=== PATIENT | male | born 1945 | race American Indian/Alaskan Native ===

== ENCOUNTER 2017-11-10 14:36 | Inpatient (IN) | payer MEDICARE ==
[2017-11-10] MEDS ORDERED: NACL 0.9% 500 ML 500 ML IV ONE (15:36)
--- NOTE | 2017-11-10 16:25 | XRay Report ---
FINAL REPORT PROCEDURE: XR CHEST 1V AP TECHNIQUE: Chest radiograph anteroposterior view. CPT 05222 HISTORY: possible Sepsis COMPARISON: None FINDINGS: The trachea is midline. The heart is normal in size. The lungs are clear. There is no evident pneumothorax or pleural fluid the thoracic cage is intact. IMPRESSION: No radiographically evident acute cardiopulmonary disease.
[2017-11-10 16:32] LABS: Basophils % (Auto) 0.1 % (0.0-1.8); Eosinophils % (Auto) 0.2 % (0.0-4.3); Hematocrit 35.3 % (35.5-45.6); Hemoglobin 11.5 gm/dl (11.8-15.2); Mean Corpuscular HGB Conc 33 % (32-34); Mean Corpuscular Hemoglobin 29 pg (28-32); Mean Corpuscular Volume 89 fl (84-94); Platelet Count 203 K/mm3 (140-440); Red Blood Count 3.98 M/mm3 (3.65-5.03); Red Cell Distribution Width 15.3 % (13.2-15.2); White Blood Count 10.3 K/mm3 (4.5-11.0)
[2017-11-10 16:43] LABS: INR 1.04 (0.87-1.13)
[2017-11-10 16:58] LABS: Albumin/Globulin Ratio 1.3 %; Bilirubin,Total 0.5 mg/dL (0.1-1.2); Calcium 9.1 mg/dL (8.4-10.2); Chloride 99.8 mmol/L (98-107); Potassium 4.5 mmol/L (3.6-5.0); Total Protein 7.1 g/dL (6.3-8.2)
--- NOTE | 2017-11-10 18:39 | Emergency Department Report ---
- General Chief complaint: Fall Stated complaint: LBP Time Seen by Provider: 11/10/17 18:23 Source: patient, EMS Mode of arrival: Stretcher Limitations: Physical Limitation - History of Present Illness Initial comments: 72 YO MALE SCHIZOPHRENIC HER BECAUSE OF MULTIPLE FALLS THIS WEEK AND HYPOTENSION. EMS CALLED FOR FALL AND FOUND SYSTOLIC BLOOD PRESSURE TO BE 80 FOR WHICH THEY GAVE ALMOST A LITER OF FLUID. HE HIT HIS HAND YESTERDAY AND DISLOCATED HIS RIGHT HAND SECOND DIGIT WHICH EMS REDUCED. HIS OTHER COMPLAINTS TODAY ARE INFECTIONS IN BILATERAL FEET. PT WAS ALTERED WHEN EMS MADE THEIR ENCOUNTER BUT WAS NOT ALTERED HERE BUT HAD URINATED ON HIMSELF. HE HAS HAD MULTIPLE FALLS FOR WHICH HE BLAMES HI SFEET FOR GETTING CAUGHT IN HIS OTHER FOOT AND FOOT PAIN/INFECTION MD Complaint: generalized weakness -: Sudden Severity scale (0 -10): 0 - Related Data Home Medications Medication Instructions Recorded Confirmed Last Taken Benztropine [Cogentin] 1 mg PO DAILY 11/10/17 11/10/17 Unknown Cariprazine HCl [Vraylar] 4.5 mg PO QHS 11/10/17 11/10/17 Unknown Finasteride [Proscar] 5 mg PO DAILY 11/10/17 11/10/17 Unknown Haloperidol 10 mg PO BID 11/10/17 11/10/17 Unknown Losartan/Hydrochlorothiazide 1 each PO DAILY 11/10/17 11/10/17 Unknown [Losartan-Hctz 100-25 mg Tab] Simvastatin 20 mg PO QHS 11/10/17 11/10/17 Unknown Terazosin [Hytrin] 5 mg PO QHS 11/10/17 11/10/17 Unknown Allergies Allergy/AdvReac Type Severity Reaction Status Date / Time No Known Allergies Allergy Verified 11/10/17 15:28 ED Review of Systems ROS: Stated complaint: LBP Other details as noted in HPI Constitutional: denies: chills, fever Eyes: denies: eye pain, eye discharge, vision change ENT: denies: ear pain, throat pain Respiratory: denies: cough, shortness of breath, wheezing Cardiovascular: denies: chest pain, palpitations Endocrine: no symptoms reported Gastrointestinal: denies: abdominal pain, nausea, diarrhea Genitourinary: denies: urgency, dysuria Musculoskeletal: joint swelling, arthralgia (FEOOT PAIN AND INFECTION), other ( FEET GETTING CAUGHT IN HIS OTHER FOOT). denies: back pain Skin: denies: rash, lesions Neurological: denies: headache, weakness, paresthesias Psychiatric: denies: anxiety, depression Hematological/Lymphatic: denies: easy bleeding, easy bruising ED Past Medical Hx - Past Medical History Previous Medical History?: Yes Hx Hypertension: Yes Hx Diabetes: Yes Hx Psychiatric Treatment: Yes (Schizophrenia) - Surgical History Past Surgical History?: Yes Additional Surgical History: RUPTURED APPENDIX,CIRCUMCISION - Social History Smoking Status: Current Every Day Smoker Substance Use Type: None - Medications Home Medications: Home Medications Medication Instructions Recorded Confirmed Last Taken Type Benztropine [Cogentin] 1 mg PO DAILY 11/10/17 11/10/17 Unknown History Cariprazine HCl [Vraylar] 4.5 mg PO QHS 11/10/17 11/10/17 Unknown History Finasteride [Proscar] 5 mg PO DAILY 11/10/17 11/10/17 Unknown History Haloperidol 10 mg PO BID 11/10/17 11/10/17 Unknown History Losartan/Hydrochlorothiazide 1 each PO DAILY 11/10/17 11/10/17 Unknown History [Losartan-Hctz 100-25 mg Tab] Simvastatin 20 mg PO QHS 11/10/17 11/10/17 Unknown History Terazosin [Hytrin] 5 mg PO QHS 11/10/17 11/10/17 Unknown History ED Physical Exam - General Limitations: Physical Limitation General appearance: alert, in no apparent distress - Head Head exam: Present: atraumatic, normocephalic - Eye Eye exam: Present: normal appearance, EOMI Pupils: Present: normal accommodation - ENT ENT exam: Present: mucous membranes dry - Neck Neck exam: Present: normal inspection, full ROM - Respiratory Respiratory exam: Present: normal lung sounds bilaterally. Absent: respiratory distress, wheezes, rales, accessory muscle use - Cardiovascular Cardiovascular Exam: Present: systolic murmur (1/) - GI/Abdominal GI/Abdominal exam: Present: soft, other (MIDLINE OLD SURGICALSCAR). Absent: distended, tenderness - Rectal Rectal exam: Present: deferred - exam: Present: normal inspection, circumcision External exam: Present: normal external exam - Extremities Exam Extremities exam: Present: full ROM, tenderness (BETWEEN TOES ON RIGHT GREATER THAN LEFT, INFECTED ULCERATIONS,) - Back Exam Back exam: Present: normal inspection, full ROM - Neurological Exam Neurological exam: Present: alert, oriented X3, CN II-XII intact - Psychiatric Psychiatric exam: Present: normal affect, normal mood - Skin Skin exam: Present: warm, dry, normal color ED Course Vital Signs 11/10/17 11/10/17 11/10/17 15:24 15:28 15:30 Temperature 98.2 F Pulse Rate 93 H 97 H 99 H Respiratory 16 15 14 Rate Blood Pressure 133/66 133/66 Blood Pressure [Left] O2 Sat by Pulse 98 98 Oximetry 11/10/17 11/10/17 11/10/17 15:46 16:00 16:15 Temperature Pulse Rate 89 90 71 Respiratory 14 14 13 Rate Blood Pressure 139/70 139/70 122/73 Blood Pressure [Left] O2 Sat by Pulse 97 98 98 Oximetry 11/10/17 11/10/17 11/10/17 16:30 16:45 17:01 Temperature Pulse Rate 85 Respiratory 11 L Rate Blood Pressure 127/68 134/73 114/69 Blood Pressure [Left] O2 Sat by Pulse 97 Oximetry 11/10/17 11/10/17 11/10/17 17:15 17:31 17:44 Temperature Pulse Rate Respiratory 11 L Rate Blood Pressure 106/62 108/65 Blood Pressure [Left] O2 Sat by Pulse 97 Oximetry 11/10/17 11/10/17 11/10/17 17:47 18:02 18:15 Temperature Pulse Rate 83 Respiratory 14 Rate Blood Pressure 178/148 120/67 112/71 Blood Pressure [Left] O2 Sat by Pulse 96 Oximetry 11/10/17 11/10/17 11/10/17 18:30 18:54 19:00 Temperature Pulse Rate 83 65 66 Respiratory 11 L 12 12 Rate Blood Pressure 116/78 178/148 106/64 Blood Pressure [Left] O2 Sat by Pulse 97 98 96 Oximetry 11/10/17 20:00 Temperature 98.2 F Pulse Rate 81 Respiratory 20 Rate Blood Pressure Blood Pressure 111/79 [Left] O2 Sat by Pulse 98 Oximetry - Reevaluation(s) Reevaluation #1: 11/11/17 03:30 PT PEED IN THE BED AND TOOK OFF ALL HIS CLOTHES. STILL AWAITING THE V/Q SCAN, DR HANSEN IS AWARE OF THE SCAN BEING ORDERED. ED Medical Decision Making - Lab Data Result diagrams: 11/10/17 16:11 11/10/17 16:11 - EKG Data -: EKG Interpreted by Me EKG shows normal: sinus rhythm, axis, intervals, QRS complexes, ST-T waves Rate: normal - Radiology Data Radiology results: report reviewed (CXR;NEGATIVE FOR ACUTE) Critical care attestation.: If time is entered above; I have spent that time in minutes in the direct care of this critically ill patient, excluding procedure time. ED Disposition Clinical Impression: Foot infection Hypotension Qualifiers: Hypotension type: unspecified hypotension type Qualified Code(s): I95.9 - Hypotension, unspecified Anemia Qualifiers: Anemia type: unspecified type Qualified Code(s): D64.9 - Anemia, unspecified Renal failure, acute Qualifiers: Acute renal failure type: unspecified Qualified Code(s): N17.9 - Acute kidney failure, unspecified Altered mental state Qualifiers: Altered mental status type: unspecified Qualified Code(s): R41.82 - Altered mental status, unspecified Fracture of finger of right hand Qualifiers: Encounter type: initial encounter Finger: index finger Fracture type: closed Phalanx: proximal Fracture alignment: displaced Qualified Code(s): S62.610A - Displaced fracture of proximal phalanx of right index finger, initial encounter for closed fracture Disposition: DC-09 OP ADMIT IP TO THIS HOSP Is pt being admited?: Yes Condition: Stable Referrals: PRIMARY CARE,MD [Primary Care Provider] - 3-5 Days Time of Disposition: 01:44 (CASE REVIEWED WITH DR JADE ABDI ADMIT HIM TO THE HOSPITAL)
--- NOTE | 2017-11-10 18:52 | XRay Report ---
FINAL REPORT PROCEDURE: XR FINGER(S) 2+V RT TECHNIQUE: Three views of the right 2nd finger are obtained HISTORY: Right digit deformity COMPARISON: No prior studies are available for comparison. FINDINGS: Bones are osteopenic. There is a small bony density adjacent to the palmar aspect of the PIP joint of the 2nd finger. This may be a small avulsed fracture fragment. No dislocation is seen. Soft tissue swelling is seen this region. IMPRESSION: Likely small avulsion fracture is seen associated with the base of the middle phalanx of the right 2nd finger.
[2017-11-10 19:28] LABS: Creatine Kinase MB 152.8 ng/mL (0.0-4.0)
[2017-11-10 20:45] LABS: Bilirubin,Urine NEG (Negative); Blood,Urine LG (Negative); Ketones,Urine NEG (Negative); Leukocyte Esterase,Urine NEG (Negative); Mucus,Urine FEW /HPF; Nitrite,Urine NEG (Negative); Protein,Urine <15 mg/dL mg/dL (Negative); Urobilinogen,Urine < 2.0 mg/dL (<2.0)
[2017-11-11] MEDS ORDERED: TYLENOL PO PRN (01:20)
[2017-11-11] MEDS ORDERED: MORPHINE IV PRN (01:21)
[2017-11-11] MEDS ORDERED: ZOFRAN IV PRN (01:23)
[2017-11-11] MEDS ORDERED: HALDOL PO ONE (03:33)
--- NOTE | 2017-11-11 04:23 | Nuclear Medicine Report ---
FINAL REPORT PROCEDURE: NM LUNG SCAN PERF/VENT TECHNIQUE: 5 mCi Tc-99m MAA was injected IV for pulmonary perfusion imaging in multiple projections. 15 mCi XE-133 aerosol was inhaled for pulmonary ventilation imaging in multiple projections. Injection site: RIGHT antecubital fossa. CPT 93337 REGULATORY GUIDELINES: The patient was released based upon established guidelines. HISTORY: Altered mental status. Elevated D-dimer. COMPARISON: Chest radiograph dated 09/2017. FINDINGS: Perfusion: Small heterogeneous nonsegmental defects. Ventilation: No defects . IMPRESSION: Findings felt to most likely reflect low probability V/Q scan for pulmonary embolism. Recommend CTA of the chest pulmonary embolism protocol for further characterization if patient has no contraindication to intravenous contrast if there is continued clinical concern.
--- NOTE | 2017-11-11 04:53 | History and Physical Report ---
CHIEF COMPLAINT: Frequent falls. Other complaints include finding of low blood pressure. HISTORY OF PRESENT ILLNESS: The patient is a 72-year-old male who has been falling around frequently and was brought to the Emergency Room because of that and was found to have low blood pressure. The patient was noted to be on multiple blood pressure medications also. After evaluation in the Emergency Room, the patient was found to have elevated troponin level and also has complained of pain in the right foot and right second finger. There is no history of chest pain, no history of shortness of breath. No history of fever or chills, nausea or vomiting. PAST MEDICAL HISTORY: Pertinent for hypertension, diabetes mellitus, schizophrenia. PAST SURGICAL HISTORY: Unremarkable. FAMILY HISTORY: Noncontributory. SOCIAL HISTORY: The patient smokes cigarettes. Does not drink alcohol, does not use illicit drugs. MEDICATIONS: The patient is on Cogentin 1 mg by mouth daily, cariprazine 4.5 mg at bedtime, Proscar 5 mg by mouth daily, haloperidol 10 mg by mouth twice daily, losartan/HCTZ 100/25 mg one by mouth daily, simvastatin 20 mg at bedtime, terazosin 5 mg at bedtime. ALLERGIES: There are no known drug allergies. REVIEW OF SYSTEMS: CONSTITUTIONAL: There is no fever, no chills, no diaphoresis. HEENT: There is no headache or sore throat. CARDIOVASCULAR: No chest pain or orthopnea. RESPIRATORY: There is no shortness of breath or cough. GASTROINTESTINAL: There is no nausea, no vomiting, no abdominal pain, diarrhea or constipation. NEUROLOGICAL: Frequent falls noted, no change in mental status. No numbness or dizziness. MUSCULOSKELETAL: Pain in the right second finger noted and pain in the right foot also noted. DERMATOLOGICAL: There is no skin rash or itching. GENITOURINARY: There is no dysuria, hematuria or flank pain. Rest of system review is normal. PHYSICAL EXAMINATION: GENERAL: At the time of exam, the patient was found to be alert, oriented to person and place, not in acute distress. VITAL SIGNS: Shows temperature of 98.2 degrees Fahrenheit, pulse of 81, respirations 20, blood pressure is 111/79, O2 sat of 98% on room air. HEENT: Show pupils to be equal, round, reactive to light and accommodation. Extraocular muscles are intact. NECK: Supple, with no JVD or carotid bruit. CARDIOVASCULAR: Show first and second heart sounds with no gallops. RESPIRATORY: Show good air entry on both sides of the lung with no abnormal breath sounds. GASTROINTESTINAL: Show abdomen to be full, soft, nontender with no organomegaly or rigidity. NEUROLOGICAL: Shows no focal deficit. MUSCULOSKELETAL: Show tenderness in the right second finger area. DERMATOLOGICAL: Showed very long toenails that are not properly kept, with hyperpigmented skin on the sheath and area of redness in the right foot. GENITOURINARY: Show no costovertebral angle tenderness. PERTINENT LABORATORY DATA AND IMAGING STUDIES: The patient has CBC done that shows normal white count, low hemoglobin of 11.5, low hematocrit of 35.3, with normal platelets with CBC differential showing elevated monocyte count of 12.1 and elevated segmented neutrophil of 78.8. Coagulation studies were unremarkable. D-dimer was elevated with a value of 978.56. The patient's chemistry shows elevated BUN of 61 and elevated creatinine of 2.5. The patient's liver transaminases show a high AST of 173 and high ALT of 61. Cardiac enzymes show very high total CK of 8693 with elevated CK-MB of 152.8, and normal CK-MB percentage index of 1.7 and elevated troponin level of 0.085. The patient's urinalysis was unremarkable. IMAGING STUDIES: The patient had chest x-ray done that shows no radiographic evidence of active cardiopulmonary disease. The patient's x-ray of the fingers shows likely small avulsion fracture, seen associated with the base of the middle phalanx of the right second finger. DIAGNOSES: 1. Elevated troponin level. 2. Frequent falls. 3. Right second finger avulsion fracture. 4. Right foot cellulitis. PLAN: The patient will be admitted to medical floor on telemetry. We will have cardiac enzymes checked q. 6 hours x 2 involving troponin, total CK and CK-MB. The patient will have Orthopedic Surgical consult with Dr. Morales because of avulsion fracture involving the right second finger bone. The patient will be on IV ceftriaxone 1 gram daily because of cellulitis of the right foot. DVT prophylaxis will be through heparin 5000 units subQ q. 12 hours. The patient will be on IV morphine 2 mg every 3 hours as needed for pain and will be on IV normal saline and 75 mL an hour as well as IV Zofran 4 mg every 8 hours for nausea and vomiting. The patient will have basic metabolic panel checked in the morning to monitor the acute renal failure and the patient is on Tylenol 650 mg by mouth every 4 hours for fever and headache and will be on his own medication as shown in the medication reconciliation section. JOB# [id number] OCN/NTS
[2017-11-11 05:38] LABS: Urine Drugs of Abuse Note Disclamer
[2017-11-11 08:00] LABS: Creatine Kinase MB 94.1 ng/mL (0.0-4.0)
[2017-11-11 08:06] LABS: Chloride 101.7 mmol/L (98-107); Potassium 4.6 mmol/L (3.6-5.0)
[2017-11-11] MEDS ORDERED: NON-FORMULARY (Haloperidol [Haloperidol] 10 MG) PO SCH (10:00)
[2017-11-11] MEDS ORDERED: NON-FORMULARY (Losartan/Hydrochlorothiazide [Losartan-Hctz 100-25 Mg Tab] 1 EACH) PO SCH (10:00)
[2017-11-11] MEDS ORDERED: ROCEPHIN/NS 1 GM/50 ML 1 GM/50 ML BAG IV SCH (10:00)
[2017-11-11] MEDS: COGENTIN PO SCH ×2 (10:30→22:33)
[2017-11-11] MEDS: MINIPRESS PO SCH ×2 (10:30→22:36)
[2017-11-11] MEDS: HALDOL PO SCH ×2 (10:30→22:37)
[2017-11-11] MEDS: PROSCAR PO SCH (10:30)
[2017-11-11] MEDS: HEPARIN SUB-Q SCH ×2 (10:32→22:38)
[2017-11-11] MEDS: COZAAR PO SCH (11:00)
--- NOTE | 2017-11-11 11:12 | Event Note ---
Date: 11/11/17 Patient seen and examined. Medical records reviewed Admitted this morning with nondisplaced fracture of the phalanx of the right index finger secondary to fall Rhabdomyolysis, elevated d-dimer is, VQ scan low probability for PE, Continue current management Plan of care discussed with the patient.
[2017-11-11 14:39] LABS: Creatine Kinase MB 73.7 ng/mL (0.0-4.0)
[2017-11-11] MEDS: HCTZ PO SCH (18:54)
[2017-11-11] MEDS: NACL 0.9% 1000 ML 1,000 ML IV SCH (20:26)
[2017-11-11] MEDS ORDERED: CARIPRAZINE HCL 4.5 MG PO SCH (22:00)
[2017-11-11] MEDS ORDERED: NON-FORMULARY (Terazosin 5 MG) PO SCH (22:00)
[2017-11-11] MEDS ORDERED: PRAVACHOL PO SCH (22:00)
[2017-11-11] MEDS ORDERED: NON-FORMULARY (Simvastatin [Simvastatin] 20 MG) PO SCH (22:00)
[2017-11-12] MEDS: NACL 0.9% 1000 ML 1,000 ML IV SCH ×2 (06:27→17:16)
[2017-11-12 07:28] LABS: Calcium 8.9 mg/dL (8.4-10.2); Chloride 101.3 mmol/L (98-107); Potassium 4.3 mmol/L (3.6-5.0)
[2017-11-12] MEDS: COGENTIN PO SCH (09:52)
[2017-11-12] MEDS: HCTZ PO SCH (09:52)
[2017-11-12] MEDS: HEPARIN SUB-Q SCH (09:52)
[2017-11-12] MEDS: HALDOL PO SCH (09:52)
[2017-11-12] MEDS: PROSCAR PO SCH (09:52)
[2017-11-12] MEDS: cefTRIAXone 1 GM in NACL 0.9% 20 ML IV SCH ×2 (10:18→10:19)
[2017-11-12] MEDS: COZAAR PO SCH (14:10)
[2017-11-12] MEDS: MINIPRESS PO SCH (14:11)
--- NOTE | 2017-11-12 16:20 | Consultation ---
History of Present Illness - HPI Consult date: 11/12/17 Consult reason: fracture History of present illness: 72-year-old male with a history of repeated falls complained of some pain and swelling at the right index finger X-rays were done and orthopedic consult requested Medications and Allergies Allergies Allergy/AdvReac Type Severity Reaction Status Date / Time No Known Allergies Allergy Verified 11/10/17 15:28 Home Medications Medication Instructions Recorded Confirmed Last Taken Type Benztropine [Cogentin] 1 mg PO DAILY 11/10/17 11/10/17 Unknown History Cariprazine HCl [Vraylar] 4.5 mg PO QHS 11/10/17 11/10/17 Unknown History Finasteride [Proscar] 5 mg PO DAILY 11/10/17 11/10/17 Unknown History Haloperidol 10 mg PO BID 11/10/17 11/10/17 Unknown History Losartan/Hydrochlorothiazide 1 each PO DAILY 11/10/17 11/10/17 Unknown History [Losartan-Hctz 100-25 mg Tab] Simvastatin 20 mg PO QHS 11/10/17 11/10/17 Unknown History Terazosin [Hytrin] 5 mg PO QHS 11/10/17 11/10/17 Unknown History Active Meds: Active Medications Acetaminophen (Tylenol) 650 mg PO Q4H PRN PRN Reason: For Pain/Fever/Headache Benztropine Mesylate (Cogentin) 1 mg PO DAILY [facility] Last Admin: 11/12/17 09:52 Dose: 1 mg Finasteride (Proscar) 5 mg PO DAILY [facility] Last Admin: 11/12/17 09:52 Dose: 5 mg Haloperidol (Haldol) 10 mg PO BID [facility] Last Admin: 11/12/17 09:52 Dose: 10 mg Heparin Sodium (Porcine) (Heparin) 5,000 unit SUB-Q Q12HR [facility] Last Admin: 11/12/17 09:52 Dose: 5,000 unit Hydrochlorothiazide (Hctz) 25 mg PO DAILY [facility] Last Admin: 11/12/17 09:52 Dose: 25 mg Sodium Chloride (Nacl 0.9% 1000 Ml) 1,000 mls @ 75 mls/hr IV DIRECT [facility] Last Admin: 11/12/17 06:27 Dose: 75 mls/hr Ceftriaxone Sodium 1 gm/ (Sodium Chloride) 20 mls @ 20 mls/10 min IV Q24HR [facility] Last Admin: 11/12/17 10:19 Dose: 20 mls/10 min Losartan Potassium (Cozaar) 100 mg PO DAILY [facility] Last Admin: 11/12/17 14:10 Dose: Not Given Miscellaneous Medication (Cariprazine Hcl [Vraylar]) 4.5 mg PO QHS [facility] Morphine Sulfate (Morphine) 2 mg IV Q3H PRN PRN Reason: Pain, Moderate (4-6) Ondansetron HCl (Zofran) 4 mg IV Q8H PRN PRN Reason: Nausea And Vomiting Prazosin HCl (Minipress) 2 mg PO Q12HR [facility] Last Admin: 11/12/17 14:11 Dose: Not Given Physical Examination - Physical exam Narrative exam: right hand - mild to moderate swelling at 2nd finger PIP joint, good active ROM , no gross deformity plain xrays reviewed by me and show avulsion fx middle phalanx joint alignment ok Assessment and Plan right 2nd finger sprain at PIP joint recommend maryjane taping only followed by active RoM exercises....
--- NOTE | 2017-11-12 16:55 | Progress Note ---
Assessment and Plan Assessment and plan: --Avulsion fracture of right second finger PIP, evaluated by orthopedic, recommend, Andrei taping, and active range of movements and exercise as tolerated --Rhabdomyolysis; secondary to recurrent falls CK levels trending down, continue IV hydration and closely monitor his renal function --Acute renal failure secondary to ATN due to rhabdomyolysis Significant improvement in renal function, closely monitor, continue IV hydration --History of recurrent falls; unknown etiology. Will check CT head without contrast , physical therapy and occupational therapy rehabilitation if needed Patient needs evaluation by neurologist inpatient versus outpatient --Elevated troponin; patient denies any chest pain, probably secondary to rhabdo , Closely monitor --Possible urinary tract infection; continue empiric antibiotics, follow cultures --DVT prophylaxis with heparin Physical therapy occupational therapy DC planning. Case management possible home health versus rehabilitation if needed Plan of care discussed with the patient and his nurse Possible discharge in 1-2 days if stable History Interval history: Patient seen and examined medical records reviewed Admitted with recurrent falls and generalized weakness Rhabdomyolysis, acute renal failure Face slightly better now, CK levels trending down Alert awake responding to simple questions appropriately Orthopedic evaluation and recommendations noted and appreciated Hospitalist Physical - Constitutional Vitals: Temp Pulse Resp BP Pulse Ox 97.5 F L 86 19 103/66 92 11/12/17 15:27 11/12/17 15:27 11/12/17 15:27 11/12/17 15:27 11/12/17 15:27 General appearance: Present: no acute distress, well-nourished - EENT Eyes: Present: PERRL, EOM intact - Neck Neck: Present: supple, enlarged thyroid - Respiratory Respiratory effort: normal Respiratory: bilateral: diminished, rales, rhonchi - Cardiovascular Rhythm: regular Heart Sounds: Present: S1 & S2 - Extremities Extremities: no ischemia, No edema Peripheral Pulses: within normal limits - Abdominal General gastrointestinal: soft, non-tender - Integumentary Integumentary: Present: clear, warm - Psychiatric Psychiatric: appropriate mood/affect, other (confused at times) - Neurologic Neurologic: moves all extremities Results - Labs CBC & Chem 7: 11/10/17 16:11 11/12/17 06:24 Labs: Laboratory Last Values WBC 10.3 K/mm3 (4.5-11.0) 11/10/17 16:11 RBC 3.98 M/mm3 (3.65-5.03) 11/10/17 16:11 Hgb 11.5 gm/dl (11.8-15.2) L 11/10/17 16:11 Hct 35.3 % (35.5-45.6) L 11/10/17 16:11 MCV 89 fl (84-94) 11/10/17 16:11 MCH 29 pg (28-32) 11/10/17 16:11 MCHC 33 % (32-34) 11/10/17 16:11 RDW 15.3 % (13.2-15.2) H 11/10/17 16:11 Plt Count 203 K/mm3 (140-440) 11/10/17 16:11 Lymph % (Auto) 8.8 % (13.4-35.0) L 11/10/17 16:11 [place] % (Auto) 12.1 % (0.0-7.3) H 11/10/17 16:11 Eos % (Auto) 0.2 % (0.0-4.3) 11/10/17 16:11 Baso % (Auto) 0.1 % (0.0-1.8) 11/10/17 16:11 Lymph # 0.9 K/mm3 (1.2-5.4) L 11/10/17 16:11 [place] # 1.2 K/mm3 (0.0-0.8) H 11/10/17 16:11 Eos # 0.0 K/mm3 (0.0-0.4) 11/10/17 16:11 Baso # 0.0 K/mm3 (0.0-0.1) 11/10/17 16:11 Seg Neutrophils % 78.8 % (40.0-70.0) H 11/10/17 16:11 Seg Neutrophils # 8.1 K/mm3 (1.8-7.7) H 11/10/17 16:11 PT 14.1 Sec. (12.2-14.9) 11/10/17 16:11 INR 1.04 (0.87-1.13) 11/10/17 16:11 D-Dimer 978.56 ng/mlDDU (0-234) H 11/10/17 18:44 VBG pH 7.340 (7.320-7.420) 11/10/17 16:11 Sodium 140 mmol/L (137-145) 11/12/17 06:24 Potassium 4.3 mmol/L (3.6-5.0) 11/12/17 06:24 Chloride 101.3 mmol/L (98-107) 11/12/17 06:24 Carbon Dioxide 23 mmol/L (22-30) 11/12/17 06:24 Anion Gap 20 mmol/L 11/12/17 06:24 BUN 42 mg/dL (9-20) H 11/12/17 06:24 Creatinine 1.5 mg/dL (0.8-1.5) 11/12/17 06:24 Estimated GFR 56 ml/min 11/12/17 06:24 BUN/Creatinine Ratio 28 % 11/12/17 06:24 Glucose 102 mg/dL (75-100) H 11/12/17 06:24 Lactic Acid 0.80 mmol/L (0.7-2.0) 11/10/17 18:44 Calcium 8.9 mg/dL (8.4-10.2) 11/12/17 06:24 Total Bilirubin 0.50 mg/dL (0.1-1.2) 11/10/17 16:11 AST 173 units/L (5-40) H 11/10/17 16:11 ALT 61 units/L (7-56) H 11/10/17 16:11 Alkaline Phosphatase 83 units/L (35-129) 11/10/17 16:11 Total Creatine Kinase 3671 units/L (55-170) H 11/12/17 06:24 CK-MB (CK-2) 28.0 ng/mL (0.0-4.0) H 11/12/17 06:24 CK-MB (CK-2) Rel Index 0.7 (0-4) 11/12/17 06:24 Troponin T 0.061 ng/mL (0.00-0.029) H 11/12/17 06:24 NT-Pro-B Natriuret Pep 369.1 pg/mL (0-900) 11/11/17 02:19 Total Protein 7.1 g/dL (6.3-8.2) 11/10/17 16:11 Albumin 4.0 g/dL (3.9-5) 11/10/17 16:11 Albumin/Globulin Ratio 1.3 % 11/10/17 16:11 Triglycerides 81 mg/dL (2-149) 11/10/17 18:44 Cholesterol 83 mg/dL (50-199) 11/10/17 18:44 LDL Cholesterol Direct 34 mg/dL (50-130) L 11/10/17 18:44 HDL Cholesterol 33 mg/dL (40-59) L 11/10/17 18:44 Cholesterol/HDL Ratio 2.51 % 11/10/17 18:44 Urine Color Yellow (Yellow) 11/10/17 20:28 Urine Turbidity Clear (Clear) 11/10/17 20:28 Urine pH 5.0 (5.0-7.0) 11/10/17 20:28 Ur Specific [place] 1.018 (1.003-1.030) 11/10/17 20:28 Urine Protein <15 mg/dl mg/dL (Negative) 11/10/17 20:28 Urine Glucose (UA) Neg mg/dL (Negative) 11/10/17 20:28 Urine Ketones Neg mg/dL (Negative) 11/10/17 20:28 Urine Blood Lg (Negative) 11/10/17 20:28 Urine Nitrite Neg (Negative) 11/10/17 20:28 Urine Bilirubin Neg (Negative) 11/10/17 20:28 Urine Urobilinogen < 2.0 mg/dL (<2.0) 11/10/17 20:28 Ur Leukocyte Esterase Neg (Negative) 11/10/17 20:28 Urine WBC (Auto) 1.0 /HPF (0.0-6.0) 11/10/17 20:28 Urine RBC (Auto) 1.0 /HPF (0.0-6.0) 11/10/17 20:28 U Epithel Cells (Auto) < 1.0 /HPF (0-13.0) 11/10/17 20:28 Urine Mucus Few /HPF 11/10/17 20:28 Urine Opiates Screen Presumptive negative 11/11/17 05:30 Urine Methadone Screen Presumptive negative 11/11/17 05:30 Ur Barbiturates Screen Presumptive negative 11/11/17 05:30 Ur Phencyclidine Scrn Presumptive negative 11/11/17 05:30 Ur Amphetamines Screen Presumptive negative 11/11/17 05:30 U Benzodiazepines Scrn Presumptive negative 11/11/17 05:30 Urine Cocaine Screen Presumptive negative 11/11/17 05:30 U Marijuana (THC) Screen Presumptive negative 11/11/17 05:30 Drugs of Abuse Note Disclamer 11/11/17 05:30 Plasma/Serum Alcohol < 0.01 gm% (0-0.07) 11/11/17 02:19
--- NOTE | 2017-11-12 19:23 | Cat Scan Report ---
FINAL REPORT EXAM: CT HEAD/BRAIN WO CON HISTORY: recurrent falls TECHNIQUE: CT head without contrast PRIORS: None. FINDINGS: Exam is significantly limited due to motion artifact. There is marked limitation evaluation the vertex. Within the limits of the exam no acute intra-axial hemorrhage identified. No acute parenchymal abnormality seen. Of the visualized portion of the bony structures no acute findings. Ventricles appear midline there is no evidence for ventriculomegaly. IMPRESSION: Limited exam due to motion artifact Within the limits of the study no acute abnormality seen
[2017-11-13] MEDS: MINIPRESS PO SCH ×3 (00:26→22:26)
[2017-11-13] MEDS: HALDOL PO SCH ×3 (00:26→22:24)
[2017-11-13] MEDS: HEPARIN SUB-Q SCH ×3 (00:27→22:29)
[2017-11-13] MEDS: NACL 0.9% 1000 ML 1,000 ML IV SCH ×2 (05:32→22:25)
[2017-11-13 08:07] LABS: Creatine Kinase MB 21.2 ng/mL (0.0-4.0)
[2017-11-13 08:10] LABS: Alanine Aminotransferase 48 units/L (7-56); Albumin 3.4 g/dL (3.9-5); Alkaline Phosphatase 70 units/L (35-129); Anion Gap 18 mmol/L; BUN/Creatinine Ratio 21; Blood Urea Nitrogen 27 mg/dL (9-20); Calcium 8.7 mg/dL (8.4-10.2); Carbon Dioxide 24 mmol/L (22-30); Glucose 98 mg/dL (75-100); Potassium 4.7 mmol/L (3.6-5.0); Sodium 139 mmol/L (137-145); Total Protein 6.9 g/dL (6.3-8.2)
[2017-11-13 08:29] LABS: Creatine Kinase 2570 units/L (55-170)
[2017-11-13] MEDS: COZAAR PO SCH (10:04)
[2017-11-13] MEDS: COGENTIN PO SCH (10:04)
[2017-11-13] MEDS: HCTZ PO SCH (10:05)
[2017-11-13] MEDS: PROSCAR PO SCH (10:05)
[2017-11-13] MEDS: cefTRIAXone 1 GM in NACL 0.9% 20 ML IV SCH (12:00)
--- NOTE | 2017-11-13 19:07 | Progress Note ---
Assessment and Plan Assessment and plan: --Rhabdomyolysis; secondary to recurrent falls CK levels trending down,8600 -2500 ,continue IV hydration , preserved renal function --Avulsion fracture of right second finger PIP, evaluated by orthopedic, recommend, Andrei taping, and active range of movements and exercise as tolerated --Acute renal failure secondary to ATN due to rhabdomyolysis Resolved, and he IV hydration --History of recurrent falls; unknown etiology. CT head without contrast negative, physical therapy and occupational therapy subacute rehabilitation if needed Patient will follow neurologist upon discharge --Elevated troponin; patient denies any chest pain, probably secondary to rhabdo , Closely monitor --Possible urinary tract infection; continue empiric antibiotics, cultures negative to date --DVT prophylaxis with heparin Physical therapy occupational therapy DC planning. Case management possible home health versus sub acute rehabilitation Plan of care discussed with the patient and case management Possible discharge in 1-2 days if stable History Interval history: Patient seen and examined Medical records reviewed Patient feels better no new complaints Vital signs reviewed CK levels trending down Hospitalist Physical - Constitutional Vitals: Temp Pulse Resp BP Pulse Ox 97.6 F 77 20 130/79 97 11/13/17 15:14 11/13/17 15:14 11/13/17 15:14 11/13/17 15:14 11/13/17 15:14 General appearance: Present: no acute distress, well-nourished - EENT Eyes: Present: PERRL, EOM intact - Neck Neck: Present: supple, normal ROM - Respiratory Respiratory effort: normal Respiratory: bilateral: diminished, negative: rales, rhonchi, wheezing - Cardiovascular Rhythm: regular Heart Sounds: Present: S1 & S2 - Extremities Extremities: no ischemia, No edema - Abdominal General gastrointestinal: soft, non-tender, non-distended, normal bowel sounds - Integumentary Integumentary: Present: clear, warm - Psychiatric Psychiatric: appropriate mood/affect, cooperative - Neurologic Neurologic: moves all extremities Results - Labs CBC & Chem 7: 11/10/17 16:11 11/13/17 07:15 Labs: Laboratory Last Values WBC 10.3 K/mm3 (4.5-11.0) 11/10/17 16:11 RBC 3.98 M/mm3 (3.65-5.03) 11/10/17 16:11 Hgb 11.5 gm/dl (11.8-15.2) L 11/10/17 16:11 Hct 35.3 % (35.5-45.6) L 11/10/17 16:11 MCV 89 fl (84-94) 11/10/17 16:11 MCH 29 pg (28-32) 11/10/17 16:11 MCHC 33 % (32-34) 11/10/17 16:11 RDW 15.3 % (13.2-15.2) H 11/10/17 16:11 Plt Count 203 K/mm3 (140-440) 11/10/17 16:11 Lymph % (Auto) 8.8 % (13.4-35.0) L 11/10/17 16:11 Branch % (Auto) 12.1 % (0.0-7.3) H 11/10/17 16:11 Eos % (Auto) 0.2 % (0.0-4.3) 11/10/17 16:11 Baso % (Auto) 0.1 % (0.0-1.8) 11/10/17 16:11 Lymph # 0.9 K/mm3 (1.2-5.4) L 11/10/17 16:11 Branch # 1.2 K/mm3 (0.0-0.8) H 11/10/17 16:11 Eos # 0.0 K/mm3 (0.0-0.4) 11/10/17 16:11 Baso # 0.0 K/mm3 (0.0-0.1) 11/10/17 16:11 Seg Neutrophils % 78.8 % (40.0-70.0) H 11/10/17 16:11 Seg Neutrophils # 8.1 K/mm3 (1.8-7.7) H 11/10/17 16:11 PT 14.1 Sec. (12.2-14.9) 11/10/17 16:11 INR 1.04 (0.87-1.13) 11/10/17 16:11 D-Dimer 978.56 ng/mlDDU (0-234) H 11/10/17 18:44 VBG pH 7.340 (7.320-7.420) 11/10/17 16:11 Sodium 139 mmol/L (137-145) 11/13/17 07:15 Potassium 4.7 mmol/L (3.6-5.0) 11/13/17 07:15 Chloride 102.0 mmol/L (98-107) 11/13/17 07:15 Carbon Dioxide 24 mmol/L (22-30) 11/13/17 07:15 Anion Gap 18 mmol/L 11/13/17 07:15 BUN 27 mg/dL (9-20) H 11/13/17 07:15 Creatinine 1.3 mg/dL (0.8-1.5) 11/13/17 07:15 Estimated GFR > 60 ml/min 11/13/17 07:15 BUN/Creatinine Ratio 21 % 11/13/17 07:15 Glucose 98 mg/dL (75-100) 11/13/17 07:15 Lactic Acid 0.80 mmol/L (0.7-2.0) 11/10/17 18:44 Calcium 8.7 mg/dL (8.4-10.2) 11/13/17 07:15 Phosphorus 2.50 mg/dL (2.5-4.5) 11/13/17 07:15 Magnesium 1.80 mg/dL (1.7-2.3) 11/13/17 07:15 Total Bilirubin 0.40 mg/dL (0.1-1.2) 11/13/17 07:15 AST 84 units/L (5-40) H 11/13/17 07:15 ALT 48 units/L (7-56) 11/13/17 07:15 Alkaline Phosphatase 70 units/L (35-129) 11/13/17 07:15 Total Creatine Kinase 2570 units/L (55-170) H 11/13/17 07:15 CK-MB (CK-2) 21.2 ng/mL (0.0-4.0) H 11/13/17 07:15 CK-MB (CK-2) Rel Index 0.8 (0-4) 11/13/17 07:15 Troponin T 0.061 ng/mL (0.00-0.029) H 11/12/17 06:24 NT-Pro-B Natriuret Pep 369.1 pg/mL (0-900) 11/11/17 02:19 Total Protein 6.9 g/dL (6.3-8.2) 11/13/17 07:15 Albumin 3.4 g/dL (3.9-5) L 11/13/17 07:15 Albumin/Globulin Ratio 1.0 % 11/13/17 07:15 Triglycerides 81 mg/dL (2-149) 11/10/17 18:44 Cholesterol 83 mg/dL (50-199) 11/10/17 18:44 LDL Cholesterol Direct 34 mg/dL (50-130) L 11/10/17 18:44 HDL Cholesterol 33 mg/dL (40-59) L 11/10/17 18:44 Cholesterol/HDL Ratio 2.51 % 11/10/17 18:44 Urine Color Yellow (Yellow) 11/10/17 20:28 Urine Turbidity Clear (Clear) 11/10/17 20:28 Urine pH 5.0 (5.0-7.0) 11/10/17 20:28 Ur Specific [place] 1.018 (1.003-1.030) 11/10/17 20:28 Urine Protein <15 mg/dl mg/dL (Negative) 11/10/17 20:28 Urine Glucose (UA) Neg mg/dL (Negative) 11/10/17 20:28 Urine Ketones Neg mg/dL (Negative) 11/10/17 20:28 Urine Blood Lg (Negative) 11/10/17 20:28 Urine Nitrite Neg (Negative) 11/10/17 20:28 Urine Bilirubin Neg (Negative) 11/10/17 20:28 Urine Urobilinogen < 2.0 mg/dL (<2.0) 11/10/17 20:28 Ur Leukocyte Esterase Neg (Negative) 11/10/17 20:28 Urine WBC (Auto) 1.0 /HPF (0.0-6.0) 11/10/17 20:28 Urine RBC (Auto) 1.0 /HPF (0.0-6.0) 11/10/17 20:28 U Epithel Cells (Auto) < 1.0 /HPF (0-13.0) 11/10/17 20:28 Urine Mucus Few /HPF 11/10/17 20:28 Urine Opiates Screen Presumptive negative 11/11/17 05:30 Urine Methadone Screen Presumptive negative 11/11/17 05:30 Ur Barbiturates Screen Presumptive negative 11/11/17 05:30 Ur Phencyclidine Scrn Presumptive negative 11/11/17 05:30 Ur Amphetamines Screen Presumptive negative 11/11/17 05:30 U Benzodiazepines Scrn Presumptive negative 11/11/17 05:30 Urine Cocaine Screen Presumptive negative 11/11/17 05:30 U Marijuana (THC) Screen Presumptive negative 11/11/17 05:30 Drugs of Abuse Note Disclamer 11/11/17 05:30 Plasma/Serum Alcohol < 0.01 gm% (0-0.07) 11/11/17 02:19
[2017-11-14] MEDS: NACL 0.9% 1000 ML 1,000 ML IV SCH ×2 (06:02→11:24)
[2017-11-14 10:19] LABS: Creatine Kinase MB 14.6 ng/mL (0.0-4.0)
[2017-11-14] MEDS: HEPARIN SUB-Q SCH (11:12)
[2017-11-14] MEDS: HCTZ PO SCH (11:12)
[2017-11-14] MEDS: PROSCAR PO SCH (11:12)
[2017-11-14] MEDS: COGENTIN PO SCH (11:12)
[2017-11-14] MEDS: HALDOL PO SCH (11:13)
[2017-11-14] MEDS: COZAAR PO SCH (11:14)
[2017-11-14] MEDS: cefTRIAXone 1 GM in NACL 0.9% 20 ML IV SCH (11:21)
[2017-11-14] MEDS: MINIPRESS PO SCH (11:21)
--- NOTE | 2017-11-14 13:22 | Discharge Summary ---
Providers - Providers Date of Admission: 11/11/17 01:10 Date of discharge: 11/14/17 Attending physician: ANITA VALDEZ 11/10/17 16:18 Speech Therapy Evaluation and Treat [CONS] Routine Reason For Exam: failed swallow 11/11/17 06:24 Consult to Physician [CONS] Routine Consulting Provider: PRECIOUS MORALES Reason For Exam: RIGHT 2ND FINGER AVUSION FRACTURE Place consult to:: PRECIOUS MORALES Notified:: yes Phone number called:: [phone] If yes, spoke with:: darryl Time called:: 09:15 11/12/17 16:43 Occupational Therapy Evaluate and Treat [CONS] Routine Comment: Reason For Exam: recurrent falls/unsteady gait Physical Therapy Evaluation and Treat [CONS] Routine Comment: Reason For Exam: recurrent geoffrey/unsteady gait Primary care physician: [employer] Hospitalization Reason for admission: frequent falls and low blood pressures Condition: Stable Pertinent studies: CT head without contrast Right second finger x-ray small evulsion fracture; seen by orthopedic, Maryjane taping, exercise as tolerated VQ scan; low probability for PE Hospital course: 72-year-old male patient was admitted through emergency room with history of recurrent falls Initially evaluated CT head without contrast was negative, patient was noted to have severe rhabdomyolysis and acute renal failure Admitted symptomatically managed with IV fluids, renal failure completely resolved, CK levels trended down from 6449-5265 today Received physical therapy occupational therapy Fall precautions, case management has set up long-term facility placement Advised to continue PT OT, plenty of oral fluids, IV fluids for 2 days per instructions, check CK in 2 days Patient is hemodynamically and clinically stable for discharge today Final diagnosis and management; --Rhabdomyolysis; secondary to recurrent falls; CK improved from 8600 -1500, continue IV fluids and plenty of oral fluids --Avulsion fracture of right second finger PIP, evaluated by orthopedic: Maryjane taping done , exercise as tolerated --Acute renal failure secondary to ATN ,Resolved, --History of recurrent falls; unknown etiology. CT head negative, PT, OT --Elevated troponin; secondary to rhabdo, no cardiac symptoms --Possible urinary tract infection; received 4 days of antibiotics, cultures negative Disposition: DC/[place]-03 SNF [facility] Time spent for discharge: 33 min Core Measure Documentation - Palliative Care Palliative Care/ Comfort Measures: Not Applicable - Core Measures Any of the following diagnoses?: none Exam - Constitutional Vitals: Temp Pulse Resp BP Pulse Ox 98.0 F 98 H 18 111/79 100 11/14/17 07:44 11/14/17 11:14 11/14/17 07:44 11/14/17 11:14 11/14/17 07:44 General appearance: Present: no acute distress, well-nourished - EENT Eyes: Present: PERRL, EOM intact - Neck Neck: Present: supple, normal ROM - Respiratory Respiratory effort: normal Respiratory: negative: rales, rhonchi, wheezing - Cardiovascular Rhythm: regular Heart Sounds: Present: S1 & S2 - Extremities Extremities: no ischemia, No edema - Abdominal General gastrointestinal: Present: soft, non-tender, non-distended, normal bowel sounds - Integumentary Integumentary: Present: clear, warm - Musculoskeletal Musculoskeletal: strength equal bilaterally - Psychiatric Psychiatric: appropriate mood/affect, cooperative - Neurologic Neurologic: CNII-XII intact, moves all extremities Plan Activity: advance as tolerated, fall precautions Diet: other (cardiac diet as tolerated) Special Instructions: physical therapy, occupational therapy Additional Instructions: plenty oral fluids. IV N.Saline 100ml/hr [daily 1 lt x 2days ] to treat elevated CK levels. check CK in 2 days. Right second finger fracture [maryjane taping done , advised exercise as tolerated ] follow Dr. Morales orthopedic if needed Follow up with: PRIMARY CARE, [Primary Care Provider] - 3-5 Days
[2017-11-14 16:16] VITALS: BP 115/76
== END 2017-11-14 18:53 | DRG 314 ==
LOC: ED 14:36 → 3A 11-11 01:10
PROVIDERS: ADMIT Internal Medicine; ATTEND Internal Medicine
DX: I95.9 Hypotension, unspecified (principal); N17.0 Acute kidney failure with tubular necrosis; M62.82 Rhabdomyolysis; N39.0 Urinary tract infection, site not specified; L03.115 Cellulitis of right lower limb; S62.620A Displaced fracture of middle phalanx of right index finger, initial encounter for closed fracture; W18.39XA Other fall on same level, initial encounter; I10 Essential (primary) hypertension; E11.9 Type 2 diabetes mellitus without complications; F20.9 Schizophrenia, unspecified; F17.210 Nicotine dependence, cigarettes, uncomplicated; D64.9 Anemia, unspecified; Y93.89 Activity, other specified; Y92.89 Other specified places as the place of occurrence of the external cause; Y99.8 Other external cause status
CPT/HCPCS: 36415; 70450; 71010; 78582; 80048; 80053; 80061; 80307; 80320; 81001; 82140; 82550; 82553; 82805; 83735; 83880; 84100; 84484; 85025; 85379; 85610; 87040; 87086; 93005; 93010; 99285; A9540; A9558; G0480; G8978-GP; G8979-GP; G8988-GO; G8989-GO; G8996-GN; G8997-GN; G8998-GN; J0696; J1644; J7030

== ENCOUNTER 2019-09-08 16:52 | Inpatient (IN) | payer MEDICARE ==
[2019-09-08] MEDS ORDERED: NACL 0.9% 1000 ML 1,000 ML IV ONE ×3 (17:30→21:40)
--- NOTE | 2019-09-08 18:22 | XRay Report ---
CHEST 1 VIEW INDICATION: tachycardia and pain. COMPARISON: 11/10/2017 FINDINGS: Support devices: None. Heart: Within normal limits. Lungs/Pleura: No acute air space or interstitial disease. Additional findings: None. IMPRESSION: 1. No acute findings. Signer Name: Lionel De Los Santos MD Signed: 09/08/2019 6:17 PM Workstation Name: [id number]
[2019-09-08 18:43] LABS: Hematocrit TNR % (35.5-45.6); Hemoglobin TNR gm/dl (11.8-15.2); Lymphocytes % (Auto) TNR % (13.4-35.0); Mean Corpuscular HGB Conc TNR % (32-34); Mean Corpuscular Volume TNR fl (84-94); Mean Platelet Volume TNR fl (6-12); Platelet Count TNR K/mm3 (140-440); Red Blood Count TNR M/mm3 (3.65-5.03); Red Cell Distribution Width TNR % (13.2-15.2)
[2019-09-08 18:44] LABS: Basophils # (Auto) TNR K/mm3 (0.0-0.1); Basophils % (Auto) TNR % (0.0-1.8); Eosinophils # (Auto) TNR K/mm3 (0.0-0.4); Eosinophils % (Auto) TNR % (0.0-4.3); Lymphocytes # (Auto) TNR K/mm3 (1.2-5.4); Monocytes # (Auto) TNR K/mm3 (0.0-0.8); Monocytes % (Auto) TNR % (0.0-7.3)
[2019-09-08 18:58] LABS: Albumin 3.6 g/dL (3.9-5)
--- NOTE | 2019-09-08 19:19 | Emergency Department Report ---
ED General Adult HPI - General Chief complaint: Medical Clearance Stated complaint: SICK Time Seen by Provider: 09/08/19 18:28 Source: EMS Mode of arrival: Stretcher Limitations: No Limitations - History of Present Illness Initial comments: Mr. Turner is a 74-year-old -Tong[place] male History of dementia patient currently resides with . sister advises she found patient down at home in feces patient denies fall injury or trauma there is no shortness of breath no chest pain no nausea vomiting patient is alert to self and date at this time which is baseline for this patient there are no obvious injuries sister advises she can no longer take care of patient at home due to patient required so much of her time and difficulty to manage Onset/Timin -: days(s) Severity scale (0 -10): 0 - Related Data Home Medications Medication Instructions Recorded Confirmed Last Taken Benztropine [Cogentin] 1 mg PO DAILY 11/10/17 09/08/19 Unknown Finasteride [Proscar] 5 mg PO DAILY 11/10/17 09/08/19 Unknown Losartan/Hydrochlorothiazide 1 each PO DAILY 11/10/17 09/08/19 Unknown [Losartan-Hctz 100-25 mg Tab] Terazosin (Nf) [Hytrin (Nf)] 5 mg PO QHS 11/10/17 09/08/19 Unknown Paliperidone Palmitate [Invega 234 mg IM QMONTH 09/08/19 09/08/19 08/31/19 Sustenna] Simvastatin 20 mg PO QHS 09/08/19 09/08/19 Unknown traZODone [Desyrel] 100 mg PO QHS 09/08/19 09/08/19 Unknown Allergies Allergy/AdvReac Type Severity Reaction Status Date / Time No Known Allergies Allergy Verified 11/10/17 15:28 ED Review of Systems ROS: Stated complaint: SICK Other details as noted in HPI Constitutional: denies: chills, fever Eyes: denies: eye pain, eye discharge, vision change ENT: denies: ear pain, throat pain Respiratory: denies: cough, shortness of breath, wheezing Cardiovascular: denies: chest pain, palpitations Endocrine: no symptoms reported Gastrointestinal: denies: abdominal pain, nausea, diarrhea Genitourinary: denies: urgency, dysuria Musculoskeletal: denies: back pain, joint swelling, arthralgia Skin: denies: rash, lesions Neurological: confusion (to baseline for dementia) Psychiatric: denies: anxiety, depression Hematological/Lymphatic: denies: easy bleeding, easy bruising ED Past Medical Hx - Past Medical History Hx Hypertension: Yes Hx Diabetes: Yes Hx Psychiatric Treatment: Yes (Schizophrenia) Hx HIV: No - Surgical History Additional Surgical History: RUPTURED APPENDIX,CIRCUMCISION - Social History Smoking Status: Never Smoker Substance Use Type: None - Medications Home Medications: Home Medications Medication Instructions Recorded Confirmed Last Taken Type Benztropine [Cogentin] 1 mg PO DAILY 11/10/17 09/08/19 Unknown History Finasteride [Proscar] 5 mg PO DAILY 11/10/17 09/08/19 Unknown History Losartan/Hydrochlorothiazide 1 each PO DAILY 11/10/17 09/08/19 Unknown History [Losartan-Hctz 100-25 mg Tab] Terazosin (Nf) [Hytrin (Nf)] 5 mg PO QHS 11/10/17 09/08/19 Unknown History Paliperidone Palmitate [Invega 234 mg IM QMONTH 09/08/19 09/08/19 08/31/19 History Sustenna] Simvastatin 20 mg PO QHS 09/08/19 09/08/19 Unknown History traZODone [Desyrel] 100 mg PO QHS 09/08/19 09/08/19 Unknown History ED Physical Exam - General Limitations: No Limitations General appearance: alert, in no apparent distress - Head Head exam: Present: normocephalic, normal inspection - Eye Eye exam: Present: normal appearance, PERRL, EOMI. Absent: conjunctival injection, nystagmus Pupils: Present: normal accommodation - ENT ENT exam: Present: normal orophraynx, mucous membranes moist, TM's normal bilaterally, normal external ear exam - Neck Neck exam: Present: normal inspection, full ROM. Absent: tenderness, ly mphadenopathy, thyromegaly - Respiratory Respiratory exam: Present: normal lung sounds bilaterally. Absent: respiratory distress, wheezes, rales, rhonchi, stridor, chest wall tenderness, prolonged expiratory - Cardiovascular Cardiovascular Exam: Present: regular rate, normal rhythm, normal heart sounds. Absent: systolic murmur, diastolic murmur, rubs, gallop - GI/Abdominal GI/Abdominal exam: Present: soft, normal bowel sounds. Absent: distended, tenderness, guarding, rebound, rigid, bruit, hernia - Rectal Rectal exam: Present: normal inspection, other (no skin breakdown ) - exam: Present: other (deferred ) - Extremities Exam Extremities exam: Present: normal inspection - Back Exam Back exam: Present: normal inspection, full ROM. Absent: tenderness, CVA tenderness (R), CVA tenderness (L), muscle spasm, paraspinal tenderness, vertebral tenderness, rash noted - Neurological Exam Neurological exam: Present: alert, oriented X3, CN II-XII intact, reflexes normal. Absent: motor sensory deficit - Expanded Neurological Exam Expanded Patient oriented to: Present: person, place Speech: Present: fluid speech Cranial nerves: EOM's Intact: Normal, Gag Reflex: Normal, Tongue Deviation: Normal, Nystagmus: Normal, Facial Sensation: Normal Cerebellar function: Finger to Nose: Normal, Heel to Ortiz: Normal Upper motor neuron: Jimi Neglect: Normal, Pronator Drift: Normal, Babinski Sign: Normal Motor strength exam: RUE: 5, LUE: 5, RLE: 5, LLE: 5 DTR: bicep (R): 2+, bicep (L): 2+, ankle (R): 2+, ankle (L): 2+ Best Eye Response (Marlon): (4) open spontaneously Best Motor Response (Cort[place]): (6) obeys commands Best Verbal Response (Marlon): (4) confused conversation Cortez Total: 14 - Psychiatric Psychiatric exam: Present: normal affect, normal mood - Skin Skin exam: Present: warm, dry, intact, normal color. Absent: rash ED Course Vital Signs 09/08/19 09/08/19 09/08/19 17:08 17:16 17:20 Temperature 97.7 F Pulse Rate 112 H 114 H Respiratory 22 13 23 Rate Blood Pressure 90/73 Blood Pressure 90/73 [Left] O2 Sat by Pulse 96 97 Oximetry 09/08/19 09/08/19 09/08/19 17:30 17:46 18:00 Temperature Pulse Rate 108 H 105 H Respiratory 15 16 17 Rate Blood Pressure 87/59 87/59 79/50 Blood Pressure [Left] O2 Sat by Pulse 98 98 Oximetry 09/08/19 09/08/19 09/08/19 18:45 19:00 19:15 Temperature Pulse Rate 101 H 102 H 100 H Respiratory 20 20 19 Rate Blood Pressure 90/47 98/57 91/58 Blood Pressure [Left] O2 Sat by Pulse 98 99 74 L Oximetry 09/08/19 09/08/19 09/08/19 19:45 20:00 20:45 Temperature Pulse Rate 106 H 103 H 102 H Respiratory 21 18 16 Rate Blood Pressure 95/61 92/62 97/48 Blood Pressure [Left] O2 Sat by Pulse 97 97 99 Oximetry ED Medical Decision Making - Lab Data Result diagrams: 09/08/19 19:23 09/08/19 17:57 - EKG Data EKG shows normal: sinus rhythm, axis, intervals, QRS complexes, ST-T waves Rate: tachycardia - EKG Data When compared to previous EKG there are: no significant change Interpretation: no acute changes, normal EKG (ekg interp by ed attending sinus tach no ST Elevated AR ) - Radiology Data Radiology results: report reviewed, image reviewed cxr: no acute findings no finding no infiltrate, CT Abd Pelvis: bilat Renal Cyst 7mm, - Medical Decision Making CT bilateral renal cysts 7 mm chest x-ray normal. No opacities no infiltrates white count is 19, UA still pending, lactic Acid: 2.7 BP 96/48 patient for further resuscitation 1 L 2-3 normal saline consult ED attending recommendation admit hospitalist for diagnosis WES dehydration UTI versus urosepsis , pt tx with rocephin x 1 gm, Cefipime 2gm, ivf x 2 liters, admit to hospitalist, Dr. Fine , 1000: pt care hand off to Hospitalist , UA pending, patient's sister verbalized agreement of same. Critical care attestation.: If time is entered above; I have spent that time in minutes in the direct care of this critically ill patient, excluding procedure time. ED Disposition Clinical Impression: WES (acute kidney injury), Bilateral renal cysts Disposition: OP ADMIT IP TO THIS HOSP Is pt being admited?: Yes Does the pt Need Aspirin: No Condition: Fair
[2019-09-08 19:32] LABS: Hematocrit 33.4 % (35.5-45.6); Hemoglobin 10.8 gm/dl (11.8-15.2); Mean Corpuscular HGB Conc 32 % (32-34); Mean Corpuscular Volume 90 fl (84-94); Platelet Count 118 K/mm3 (140-440); Red Blood Count 3.71 M/mm3 (3.65-5.03); Red Cell Distribution Width 15.3 % (13.2-15.2)
[2019-09-08] MEDS ORDERED: ROCEPHIN/NS 1 GM/50 ML 1 GM/50 ML BAG IV ONE (19:58)
[2019-09-08 20:03] LABS: Basophils % (Manual) 0 % (0.0-1.8); Eosinophils % (Manual) 0 % (0.0-4.3); Total Cells Counted 100
[2019-09-08 20:04] LABS: Anisocytosis 1+; Ovalocytes Few; Platelet Estimate Consistent w Auto
--- NOTE | 2019-09-08 21:17 | Cat Scan Report ---
CT abdomen pelvis wo con INDICATION: MAIN: BILATERAL FLANK PAIN . TECHNIQUE: All CT scans at this location are performed using CT dose reduction for ALARA by means of automated e xposure control. COMPARISON: None available. FINDINGS: No acute disease in the lung bases. Liver, gallbladder, spleen and pancreas are grossly negative. Mul tiple bilateral renal cysts, measuring up to 7 cm, but no hydronephrosis or renal calculi. Abdominal aorta is normal in size. Pelvis Urinary bladder is mostly collapsed but grossly unremarkable. No free fluid or inflammation. IMPRESSION: 1. Multiple bilateral renal cysts, several which are quite large, measuring up to 7 cm. Signer Name: Andrew Chung MD Signed: 09/08/2019 9:13 PM Workstation Name: [id number]
[2019-09-08] MEDS ORDERED: MAXIPIME/NS 2 GM/100 ML 2 GM/100 ML BAG IV ONE (21:39)
[2019-09-08] MEDS ORDERED: FLOMAX PO ONE (22:45)
[2019-09-08] MEDS ORDERED: SODIUM CHLORIDE FLUSH SYRINGE 10 ML IV PRN (23:08)
[2019-09-08] MEDS ORDERED: ZOFRAN IV PRN (23:08)
--- NOTE | 2019-09-08 23:16 | Event Note ---
74-year-old man with history of schizophrenia, hypertension, BPH, hyperlipidemia who was brought to the hospital by his sister after she found him down at home in his own feces. The patient denied any trauma or injury. The sister also did not believe there was any trauma injury. She states that he has been in and outs of rehab she can no longer take care of him at home as he requires more care than she can give. The patient receives in [facility] injections every month for treatment of schizophrenia. The patient upon arrival in the ER is hypotensive, patient is alert and demented and confused at baseline but pleasant and conversive. He was also noted to have acute kidney injury and leukocytosis. Chest x-ray; no acute findings CT abdomen and pelvis multiple bilateral renal cysts, several which are quite large measuring up to 7 cm. Collapsed urinary bladder which is unremarkable. No free fluid or inflammation. SEPSIS, UTI, iv abx, IVF, fup urine culture Hypotension, likely due to dehydration, BP meds on hold, changed Hytrin to Flomax Severe dehydration; IV fluids Acute kidney injury most likely prerenal/vasomotor nephropathy, IV fluids, CT abdomen and pelvis is negative for any obstruction but shows collapsed bladder which is consistent with dehydration. IV fluids, nephrology consults Given that patient was recently admitted and had rhabdomyolysis and a fall, will check CK and hold statin Schizophrenia, patient has already received in [place], continue benztropine and trazodone Failure to thrive/functional quadriplegia; PT consult, case management consulted for possible placement. DVT prophylaxis with renally dosed Lovenox
[2019-09-08] MEDS ORDERED: D50W (25GM) Syringe IV PRN (23:28)
--- NOTE | 2019-09-08 23:31 | History and Physical Report ---
History of Present Illness Date of examination: 09/08/19 Date of admission: 09/08/2019 Chief complaint: Failure to Thrive History of present illness: 74-year-old -Tunisian male history of BPH, dementia, schizophrenia hypertension, and diabetes, who presents [facility] ED via EMS after being found down at home covered in feces and bodily fluids. Pt is a poor historian. History is provided by pt's sister and review of medical records. It is not clear how to how pt ended up on the floor. Both pt and sister denies injury/trauma. Pt currently lives at home with sister who cares for him. His sister has requested assistance with placement as she is no longer able to provide the level of pt requires. Past History Past Medical History: diabetes, hypertension, other (dementia, schizophrenia, BPH, ) Past Surgical History: No surgical history, Other (ruptured appendix) Social history: lives with family (lives with sister) Family history: no significant family history Medications and Allergies Allergies Allergy/AdvReac Type Severity Reaction Status Date / Time No Known Allergies Allergy Verified 11/10/17 15:28 Home Medications Medication Instructions Recorded Confirmed Last Taken Type Benztropine [Cogentin] 1 mg PO DAILY 11/10/17 09/08/19 Unknown History Finasteride [Proscar] 5 mg PO DAILY 11/10/17 09/08/19 Unknown History Losartan/Hydrochlorothiazide 1 each PO DAILY 11/10/17 09/08/19 Unknown History [Losartan-Hctz 100-25 mg Tab] Terazosin (Nf) [Hytrin (Nf)] 5 mg PO QHS 11/10/17 09/08/19 Unknown History Paliperidone Palmitate [Invega 234 mg IM QMONTH 09/08/19 09/08/19 08/31/19 History Sustenna] Simvastatin 20 mg PO QHS 09/08/19 09/08/19 Unknown History traZODone [Desyrel] 100 mg PO QHS 09/08/19 09/08/19 Unknown History Active Meds: Active Medications Acetaminophen (Tylenol) 650 mg PO Q4H PRN PRN Reason: Pain MILD(1-3)/Fever >100.5/RAMIREZ Benztropine Mesylate (Cogentin) 1 mg PO DAILY CALVIN Enoxaparin Sodium (Lovenox) 30 mg SUB-Q QDAY CALVIN Finasteride (Proscar) 5 mg PO DAILY [facility] Sodium Chloride (Nacl 0.9% 1000 Ml) 1,000 mls @ 125 mls/hr IV DIRECT CALVIN Ondansetron HCl (Zofran) 4 mg IV Q8H PRN PRN Reason: Nausea And Vomiting Sodium Chloride (Sodium Chloride Flush Syringe 10 Ml) 10 ml IV BID CALVIN Sodium Chloride (Sodium Chloride Flush Syringe 10 Ml) 10 ml IV PRN PRN PRN Reason: LINE FLUSH Tamsulosin HCl (Flomax) 0.4 mg PO QDAY CALVIN Trazodone HCl (Desyrel) 100 mg PO QHS CALVIN Review of Systems All systems: negative Constitutional: weakness Neurological: weakness Exam - Physical Exam Narrative exam: Physical exam General appearance: Present: No acute distress, awake, oriented to self, person, place, muffled speech, older adult -Tunisian male - EENT Eyes: Present: PERRL, EOM intact, ENT: hearing intact, missing teeth - Neck Neck: Present: supple, normal ROM - Respiratory Respiratory effort: Non-labored Respiratory: Diminished bases - Cardiovascular Heart rate: 106 (bpm) Rhythm: ST Heart Sounds: Present: S1, S2 - Extremities Extremities: pulses intact, bilateral lower extremity edema R>L - Peripheral Assessment Peripheral Pulses: within normal limits - Abdominal General gastrointestinal: Soft, non-tender, normal bowel sounds - Integumentary Integumentary: Present: warm, dry, - Musculoskeletal Musculoskeletal: Able to move all extremities, normal gait -Neurological Neurological: CN II-XII grossly intact - Psychiatric Psychiatric: cooperative - Constitutional Vitals: Temp Pulse Resp BP Pulse Ox 97.7 F 93 H 17 110/67 98 09/08/19 17:20 09/08/19 23:15 09/08/19 23:15 09/08/19 23:15 09/08/19 23:15 Results - Labs CBC & Chem 7: 09/08/19 19:23 09/08/19 17:57 Labs: Laboratory Last Values WBC 19.3 K/mm3 (4.5-11.0) H 09/08/19 19:23 RBC 3.71 M/mm3 (3.65-5.03) 09/08/19 19:23 Hgb 10.8 gm/dl (11.8-15.2) L 09/08/19 19:23 Hct 33.4 % (35.5-45.6) L 09/08/19 19:23 MCV 90 fl (84-94) 09/08/19 19:23 MCH 29 pg (28-32) 09/08/19 19:23 MCHC 32 % (32-34) 09/08/19 19:23 RDW 15.3 % (13.2-15.2) H 09/08/19 19:23 Plt Count 118 K/mm3 (140-440) L 09/08/19 19:23 Lymph % (Auto) TNR 09/08/19 17:57 Nash % (Auto) TNR 09/08/19 17:57 Eos % (Auto) TNR 09/08/19 17:57 Baso % (Auto) TNR 09/08/19 17:57 Lymph # TNR 09/08/19 17:57 Nash # TNR 09/08/19 17:57 Eos # TNR 09/08/19 17:57 Baso # TNR 09/08/19 17:57 Add Manual Diff Complete 09/08/19 19:23 Total Counted 100 09/08/19 19:23 Seg Neutrophils % Farmworker Fur 09/08/19 19:23 Seg Neuts % (Manual) 94.0 % (40.0-70.0) H 09/08/19 19:23 Band Neutrophils % 0 % 09/08/19 19:23 Lymphocytes % (Manual) 3.0 % (13.4-35.0) L 09/08/19 19:23 Reactive Lymphs % (Man) 0 % 09/08/19 19:23 Monocytes % (Manual) 3.0 % (0.0-7.3) 09/08/19 19:23 Eosinophils % (Manual) 0 % (0.0-4.3) 09/08/19 19:23 Basophils % (Manual) 0 % (0.0-1.8) 09/08/19 19:23 Metamyelocytes % 0 % 09/08/19 19:23 Myelocytes % 0 % 09/08/19 19:23 Promyelocytes % 0 % 09/08/19 19:23 Blast Cells % 0 % 09/08/19 19:23 Nucleated RBC % Not Reportable 09/08/19 19:23 Seg Neutrophils # TNR 09/08/19 17:57 Seg Neutrophils # Man 18.1 K/mm3 (1.8-7.7) H 09/08/19 19:23 Band Neutrophils # 0.0 K/mm3 09/08/19 19:23 Lymphocytes # (Manual) 0.6 K/mm3 (1.2-5.4) L 09/08/19 19:23 Abs React Lymphs (Man) 0.0 K/mm3 09/08/19 19:23 Monocytes # (Manual) 0.6 K/mm3 (0.0-0.8) 09/08/19 19:23 Eosinophils # (Manual) 0.0 K/mm3 (0.0-0.4) 09/08/19 19:23 Basophils # (Manual) 0.0 K/mm3 (0.0-0.1) 09/08/19 19:23 Metamyelocytes # 0.0 K/mm3 09/08/19 19:23 Myelocytes # 0.0 K/mm3 09/08/19 19:23 Promyelocytes # 0.0 K/mm3 09/08/19 19:23 Blast Cells # 0.0 K/mm3 09/08/19 19:23 WBC Morphology Not Reportable 09/08/19 19:23 Hypersegmented Neuts Not Reportable 09/08/19 19:23 Hyposegmented Neuts Not Reportable 09/08/19 19:23 Hypogranular Neuts Not Reportable 09/08/19 19:23 Smudge Cells Not Reportable 09/08/19 19:23 Toxic Granulation Not Reportable 09/08/19 19:23 Toxic Vacuolation Not Reportable 09/08/19 19:23 Dohle Bodies Not Reportable 09/08/19 19:23 Pelger-Huet Anomaly Not Reportable 09/08/19 19:23 Juan Rods Not Reportable 09/08/19 19:23 Platelet Estimate Consistent w auto 09/08/19 19:23 Clumped Platelets Not Reportable 09/08/19 19:23 Plt Clumps, EDTA Not Reportable 09/08/19 19:23 Large Platelets Not Reportable 09/08/19 19:23 Giant Platelets Not Reportable 09/08/19 19:23 Platelet Satelliting Not Reportable 09/08/19 19:23 Plt Morphology Comment Not Reportable 09/08/19 19:23 RBC Morphology Not Reportable 09/08/19 19:23 Dimorphic RBCs Not Reportable 09/08/19 19:23 Polychromasia Not Reportable 09/08/19 19:23 Hypochromasia Not Reportable 09/08/19 19:23 Poikilocytosis Not Reportable 09/08/19 19:23 Anisocytosis 1+ 09/08/19 19:23 Microcytosis Not Reportable 09/08/19 19:23 Macrocytosis Not Reportable 09/08/19 19:23 Spherocytes Not Reportable 09/08/19 19:23 Pappenheimer Bodies Not Reportable 09/08/19 19:23 Sickle Cells Not Reportable 09/08/19 19:23 Target Cells Not Reportable 09/08/19 19:23 Tear Drop Cells Not Reportable 09/08/19 19:23 Ovalocytes Few 09/08/19 19:23 Helmet Cells Not Reportable 09/08/19 19:23 Matt[place] Bodies Not Reportable 09/08/19 19:23 [place] Rings Not Reportable 09/08/19 19:23 Hemanth Cells Not Reportable 09/08/19 19:23 Bite Cells Not Reportable 09/08/19 19:23 Crenated Cell Not Reportable 09/08/19 19:23 Elliptocytes Not Reportable 09/08/19 19:23 Acanthocytes (Spur) Not Reportable 09/08/19 19:23 Rouleaux Not Reportable 09/08/19 19:23 Hemoglobin C Crystals Not Reportable 09/08/19 19:23 Schistocytes Not Reportable 09/08/19 19:23 Malaria parasites Not Reportable 09/08/19 19:23 Tarqi Bodies Not Reportable 09/08/19 19:23 Hem Pathologist Commnt No 09/08/19 19:23 Sodium 136 mmol/L (137-145) L 09/08/19 17:57 Potassium 4.1 mmol/L (3.6-5.0) 09/08/19 17:57 Chloride 103.9 mmol/L (98-107) 09/08/19 17:57 Carbon Dioxide 20 mmol/L (22-30) L 09/08/19 17:57 Anion Gap 16 mmol/L 09/08/19 17:57 BUN 31 mg/dL (9-20) H 09/08/19 17:57 Creatinine 2.7 mg/dL (0.8-1.5) H 09/08/19 17:57 Estimated GFR 28 ml/min 09/08/19 17:57 BUN/Creatinine Ratio 11 % 09/08/19 17:57 Glucose 93 mg/dL (75-100) 09/08/19 17:57 Lactic Acid 2.40 mmol/L (0.7-2.0) H* 09/08/19 20:54 Calcium 8.0 mg/dL (8.4-10.2) L 09/08/19 17:57 Total Bilirubin 0.50 mg/dL (0.1-1.2) 09/08/19 17:57 AST 15 units/L (5-40) 09/08/19 17:57 ALT 7 units/L (7-56) 09/08/19 17:57 Alkaline Phosphatase 83 units/L (35-129) 09/08/19 17:57 Troponin T < 0.010 ng/mL (0.00-0.029) 09/08/19 20:54 Total Protein 7.2 g/dL (6.3-8.2) 09/08/19 17:57 Albumin 3.6 g/dL (3.9-5) L 09/08/19 17:57 Albumin/Globulin Ratio 1.0 % 09/08/19 17:57 - Imaging and Cardiology Imaging and Cardiology: CT Abdomen/ Pelvis FINDINGS: No acute disease in the lung bases. Liver, gallbladder, spleen and pancreas are grossly negative. Multiple bilateral renal cysts, measuring up to 7 cm, but no hydronephrosis or renal calculi. Abdominal aorta is normal in size. Pelvis Urinary bladder is mostly collapsed but grossly unremarkable. No free fluid or inflammation. IMPRESSION: 1. Multiple bilateral renal cysts, several which are quite large, measuring up to 7 cm. CXR: FINDINGS: Support devices: None. Heart: Within normal limits. Lungs/Pleura: No acute air space or interstitial disease. Additional findings: None. IMPRESSION: 1. No acute findings. Assessment and Plan Assessment and plan: 74-year-old -Tunisian male history of BPH, dementia, schizophrenia hypertension, and diabetes, who presents [facility] ED via EMS after being found down at home covered in feces and bodily fluids. WES -CT Abdomen/Pelvis shows Urinary bladder is mostly collapsed but grossly unremarkable. No free fluid or inflammation. Multiple bilateral renal cysts, several which are quite large, measuring up to 7 cm. -Likely due to dehydration -Cr on admission 2.7 -Hydrate with IVF -Avoid nephrotoxin agents -Renal dose all meds -Nephrology consulted SIRS -CXR unremarkable -Leukocytosis 19.3 -Tachycardic with heart rate 106 bpm -Afebrile -Received 1 dose of IV Rocephin in ED -UA pending -Blood cultures pending -Will continue to workup source of infection -May be due to dehydration -Follow up on labs Hypotension -BP on admission 87/59 -Responsive to fluid resuscitation -On IVF -Continue to monitor BP -Hold all antihypertensive meds Failure to Thrive -Pt currently lives at home with sister, who is unable to continue to care for him -Present to ED via EMS after being found down covered in feces and body fluids -PT/OT eval pending -Case management consult pending Schizophrenia -Receives monthly Invega injections BPH -Continue finasteride -Start Flomax DM2 -HgbA1c pending -SSI coverage prn Hx Dementia DVT PPX -on Lovenox Advance Directives: No VTE prophylaxis?: Chemical Plan of care discussed with patient/family: Yes
[2019-09-09 02:49] LABS: Bacteria,Urine 1+ /HPF (Negative); Bilirubin,Urine NEG (Negative); Blood,Urine MOD (Negative); Color,Urine Yellow (Yellow); Mucus,Urine FEW /HPF; Urobilinogen,Urine < 2.0 mg/dL (<2.0)
[2019-09-09 02:52] LABS: WBC,Urine > 182.0 /HPF (0.0-6.0)
[2019-09-09 06:03] LABS: Hematocrit 32.2 % (35.5-45.6); Hemoglobin 10.5 gm/dl (11.8-15.2); Mean Corpuscular HGB Conc 33 % (32-34); Mean Corpuscular Volume 90 fl (84-94); Platelet Count 127 K/mm3 (140-440); Red Blood Count 3.59 M/mm3 (3.65-5.03); Red Cell Distribution Width 15.3 % (13.2-15.2)
[2019-09-09 06:38] LABS: Calcium 7.6 mg/dL (8.4-10.2)
[2019-09-09] MEDS: HumaLOG SUB-Q SCH ×3 (07:30→17:44)
[2019-09-09 08:50] LABS: Band Neutrophils # (Manual) 10.5 K/mm3; Basophils % (Manual) 0 % (0.0-1.8); Eosinophils % (Manual) 0 % (0.0-4.3); Total Cells Counted 100
[2019-09-09 08:51] LABS: Anisocytosis 1+; Ovalocytes Few
[2019-09-09 08:52] LABS: Platelet Estimate Consistent w Auto
[2019-09-09] MEDS: ROCEPHIN/NS 1 GM/50 ML 1 GM/50 ML BAG IV SCH (10:27)
[2019-09-09] MEDS: LOVENOX SUB-Q SCH (10:27)
[2019-09-09] MEDS: COGENTIN PO SCH (10:27)
[2019-09-09] MEDS: PROSCAR PO SCH (10:28)
[2019-09-09] MEDS: FLOMAX PO SCH (10:28)
[2019-09-09] MEDS: SODIUM CHLORIDE FLUSH SYRINGE 10 ML IV SCH ×2 (10:29→23:52)
--- NOTE | 2019-09-09 14:26 | Progress Note ---
Assessment and Plan Assessment and plan: 74-year-old -Trinid[place] male history of BPH, dementia, schizophrenia hypertension, and diabetes, who presents [facility] ED via EMS after being found down at home covered in feces and bodily fluids. WES may be ATN versus vasomotor nephropathy -CT Abdomen/Pelvis shows Urinary bladder is mostly collapsed but grossly unremarkable. No free fluid or inflammation. Multiple bilateral renal cysts, several which are quite large, measuring up to 7 cm. -Cr on admission 2.7, now 2.5 -Hydrate with IVF -Avoid nephrotoxin agents -Renal dose all meds -Nephrology consulted Poss sepsis due to UTI -CXR unremarkable -Leukocytosis 19.3 -Tachycardic with heart rate 106 bpm -Afebrile -Blood cultures pending Consult ID since WBC increasing UTI Cont Rocephin Leukocytosis Hypotension -BP on admission 87/59 -Responsive to fluid resuscitation -On IVF -Continue to monitor BP -Hold all antihypertensive meds Failure to Thrive -Pt currently lives at home with sister, who is unable to continue to care for him -Present to ED via EMS after being found down covered in feces and body fluids -PT/OT eval pending -Case management consulted Schizophrenia -Receives monthly Invega injections BPH -Continue finasteride -Start Flomax DM2 -HgbA1c 5.5 -SSI coverage prn Hx Dementia DVT PPX -on Lovenox History Interval history: Feels better Hospitalist Physical - Physical exam Narrative exam: Gen: Not in acute distress, Lying in bed HEENT: Normocephalic, atraumatic Neck: supple, no JVD Heart: S1 and S2 reg, no murmurs, rubs or gallop Lungs: Clear to auscultation, no rhonchi, no wheeze Abd: soft, non tender , no rebound tenderness, non distended, normal BS, Ext: No edema, no clubbing, no cyanosis Neuro: Awake, alert, moves all ext, no focal neurological signs - Constitutional Vitals: Temp Pulse Resp BP Pulse Ox 97.9 F 76 18 98/71 97 09/09/19 07:26 09/09/19 07:26 09/09/19 07:26 09/09/19 07:26 09/09/19 07:26 Results - Labs CBC & Chem 7: 09/09/19 05:43 09/09/19 05:43 Labs: Laboratory Last Values WBC 27.6 K/mm3 (4.5-11.0) H 09/09/19 05:43 RBC 3.59 M/mm3 (3.65-5.03) L 09/09/19 05:43 Hgb 10.5 gm/dl (11.8-15.2) L 09/09/19 05:43 Hct 32.2 % (35.5-45.6) L 09/09/19 05:43 MCV 90 fl (84-94) 09/09/19 05:43 MCH 29 pg (28-32) 09/09/19 05:43 MCHC 33 % (32-34) 09/09/19 05:43 RDW 15.3 % (13.2-15.2) H 09/09/19 05:43 Plt Count 127 K/mm3 (140-440) L 09/09/19 05:43 Lymph % (Auto) TNR 09/08/19 17:57 Tillman % (Auto) TNR 09/08/19 17:57 Eos % (Auto) TNR 09/08/19 17:57 Baso % (Auto) TNR 09/08/19 17:57 Lymph # TNR 09/08/19 17:57 Tillman # TNR 09/08/19 17:57 Eos # TNR 09/08/19 17:57 Baso # TNR 09/08/19 17:57 Add Manual Diff Complete 09/09/19 05:43 Total Counted 100 09/09/19 05:43 Seg Neutrophils % Pencil Maker 09/09/19 05:43 Seg Neuts % (Manual) 55.0 % (40.0-70.0) 09/09/19 05:43 Band Neutrophils % 38.0 % 09/09/19 05:43 Lymphocytes % (Manual) 3.0 % (13.4-35.0) L 09/09/19 05:43 Reactive Lymphs % (Man) 0 % 09/09/19 05:43 Monocytes % (Manual) 2.0 % (0.0-7.3) 09/09/19 05:43 Eosinophils % (Manual) 0 % (0.0-4.3) 09/09/19 05:43 Basophils % (Manual) 0 % (0.0-1.8) 09/09/19 05:43 Metamyelocytes % 2.0 % 09/09/19 05:43 Myelocytes % 0 % 09/09/19 05:43 Promyelocytes % 0 % 09/09/19 05:43 Blast Cells % 0 % 09/09/19 05:43 Nucleated RBC % 1.0 % (0.0-0.9) H 09/09/19 05:43 Seg Neutrophils # TNR 09/08/19 17:57 Seg Neutrophils # Man 15.2 K/mm3 (1.8-7.7) H 09/09/19 05:43 Band Neutrophils # 10.5 K/mm3 09/09/19 05:43 Lymphocytes # (Manual) 0.8 K/mm3 (1.2-5.4) L 09/09/19 05:43 Abs React Lymphs (Man) 0.0 K/mm3 09/09/19 05:43 Monocytes # (Manual) 0.6 K/mm3 (0.0-0.8) 09/09/19 05:43 Eosinophils # (Manual) 0.0 K/mm3 (0.0-0.4) 09/09/19 05:43 Basophils # (Manual) 0.0 K/mm3 (0.0-0.1) 09/09/19 05:43 Metamyelocytes # 0.6 K/mm3 09/09/19 05:43 Myelocytes # 0.0 K/mm3 09/09/19 05:43 Promyelocytes # 0.0 K/mm3 09/09/19 05:43 Blast Cells # 0.0 K/mm3 09/09/19 05:43 WBC Morphology Not Reportable 09/09/19 05:43 Hypersegmented Neuts Not Reportable 09/09/19 05:43 Hyposegmented Neuts Not Reportable 09/09/19 05:43 Hypogranular Neuts Not Reportable 09/09/19 05:43 Smudge Cells Not Reportable 09/09/19 05:43 Toxic Granulation Not Reportable 09/09/19 05:43 Toxic Vacuolation Not Reportable 09/09/19 05:43 Dohle Bodies Not Reportable 09/09/19 05:43 Pelger-Huet Anomaly Not Reportable 09/09/19 05:43 Juan Rods Not Reportable 09/09/19 05:43 Platelet Estimate Consistent w auto 09/09/19 05:43 Clumped Platelets Not Reportable 09/09/19 05:43 Plt Clumps, EDTA Not Reportable 09/09/19 05:43 Large Platelets Not Reportable 09/09/19 05:43 Giant Platelets Not Reportable 09/09/19 05:43 Platelet Satelliting Not Reportable 09/09/19 05:43 Plt Morphology Comment Not Reportable 09/09/19 05:43 RBC Morphology Not Reportable 09/09/19 05:43 Dimorphic RBCs Not Reportable 09/09/19 05:43 Polychromasia Not Reportable 09/09/19 05:43 Hypochromasia Not Reportable 09/09/19 05:43 Poikilocytosis Not Reportable 09/09/19 05:43 Anisocytosis 1+ 09/09/19 05:43 Microcytosis Not Reportable 09/09/19 05:43 Macrocytosis Not Reportable 09/09/19 05:43 Spherocytes Not Reportable 09/09/19 05:43 Pappenheimer Bodies Not Reportable 09/09/19 05:43 Sickle Cells Not Reportable 09/09/19 05:43 Target Cells Not Reportable 09/09/19 05:43 Tear Drop Cells Not Reportable 09/09/19 05:43 Ovalocytes Few 09/09/19 05:43 Helmet Cells Not Reportable 09/09/19 05:43 Matt[place] Bodies Not Reportable 09/09/19 05:43 [place] Rings Not Reportable 09/09/19 05:43 Hemanth Cells Not Reportable 09/09/19 05:43 Bite Cells Not Reportable 09/09/19 05:43 Crenated Cell Not Reportable 09/09/19 05:43 Elliptocytes Not Reportable 09/09/19 05:43 Acanthocytes (Spur) Not Reportable 09/09/19 05:43 Rouleaux Not Reportable 09/09/19 05:43 Hemoglobin C Crystals Not Reportable 09/09/19 05:43 Schistocytes Not Reportable 09/09/19 05:43 Malaria parasites Not Reportable 09/09/19 05:43 Tariq Bodies Not Reportable 09/09/19 05:43 Hem Pathologist Commnt No 09/09/19 05:43 Sodium 140 mmol/L (137-145) 09/09/19 05:43 Potassium 4.7 mmol/L (3.6-5.0) 09/09/19 05:43 Chloride 107.5 mmol/L (98-107) H 09/09/19 05:43 Carbon Dioxide 21 mmol/L (22-30) L 09/09/19 05:43 Anion Gap 16 mmol/L 09/09/19 05:43 BUN 33 mg/dL (9-20) H 09/09/19 05:43 Creatinine 2.5 mg/dL (0.8-1.5) H 09/09/19 05:43 Estimated GFR 31 ml/min 09/09/19 05:43 BUN/Creatinine Ratio 13 % 09/09/19 05:43 Glucose 87 mg/dL (75-100) 09/09/19 05:43 POC Glucose 97 (70-105) 09/09/19 11:46 Hemoglobin A1c 5.5 % (4-6) 09/09/19 00:21 Lactic Acid 2.10 mmol/L (0.7-2.0) H* 09/09/19 00:21 Calcium 7.6 mg/dL (8.4-10.2) L 09/09/19 05:43 Total Bilirubin 0.50 mg/dL (0.1-1.2) 09/08/19 17:57 AST 15 units/L (5-40) 09/08/19 17:57 ALT 7 units/L (7-56) 09/08/19 17:57 Alkaline Phosphatase 83 units/L (35-129) 09/08/19 17:57 Total Creatine Kinase 563 units/L (55-170) H 09/09/19 00:21 Troponin T < 0.010 ng/mL (0.00-0.029) 09/08/19 20:54 Total Protein 7.2 g/dL (6.3-8.2) 09/08/19 17:57 Albumin 3.6 g/dL (3.9-5) L 09/08/19 17:57 Albumin/Globulin Ratio 1.0 % 09/08/19 17:57 Urine Color Yellow (Yellow) 09/08/19 02:00 Urine Turbidity Cloudy (Clear) 09/08/19 02:00 Urine pH 5.0 (5.0-7.0) 09/08/19 02:00 Ur Specific [place] 1.014 (1.003-1.030) 09/08/19 02:00 Urine Protein 100 mg/dl mg/dL (Negative) 09/08/19 02:00 Urine Glucose (UA) Neg mg/dL (Negative) 09/08/19 02:00 Urine Ketones Neg mg/dL (Negative) 09/08/19 02:00 Urine Blood Mod (Negative) 09/08/19 02:00 Urine Nitrite Neg (Negative) 09/08/19 02:00 Urine Bilirubin Neg (Negative) 09/08/19 02:00 Urine Urobilinogen < 2.0 mg/dL (<2.0) 09/08/19 02:00 Ur Leukocyte Esterase Lg (Negative) 09/08/19 02:00 Urine WBC (Auto) > 182.0 /HPF (0.0-6.0) H 09/08/19 02:00 Urine RBC (Auto) 41.0 /HPF (0.0-6.0) 09/08/19 02:00 Urine Bacteria (Auto) 1+ /HPF (Negative) 09/08/19 02:00 Urine Mucus Few /HPF 09/08/19 02:00 Active Medications - Current Medications Current Medications: Generic Name Dose Route Start Last Admin Trade Name Freq PRN Reason Stop Dose Admin Acetaminophen 650 mg 09/08/19 23:08 Tylenol PO Q4H PRN Pain MILD(1-3)/Fever >100.5/RAMIREZ Benztropine Mesylate 1 mg 09/09/19 10:00 09/09/19 10:27 Cogentin PO 1 mg DAILY CALVIN Administration Dextrose 50 ml 09/08/19 23:28 D50w (25gm) Syringe IV PRN PRN Hypoglycemia Enoxaparin Sodium 30 mg 09/09/19 10:00 09/09/19 10:27 Lovenox SUB-Q 30 mg QDAY CALVIN Administration Finasteride 5 mg 09/09/19 10:00 09/09/19 10:28 Proscar PO 5 mg DAILY CALVIN Administration Sodium Chloride 1,000 mls @ 125 mls/hr 09/08/19 23:45 Nacl 0.9% 1000 Ml IV DIRECT CALVIN Ceftriaxone Sodium 1 gm in 50 mls @ 100 mls/hr 09/09/19 10:00 09/09/19 10:27 Rocephin/Ns 1 Gm/50 Ml IV 100 mls/hr Q24HR CALVIN Administration Protocol Insulin Human Lispro 0 unit 09/09/19 07:30 09/09/19 07:30 Humalog SUB-Q Not Given ACHS [facility] Protocol Ondansetron HCl 4 mg 09/08/19 23:08 Zofran IV Q8H PRN Nausea And Vomiting Sodium Chloride 10 ml 09/09/19 10:00 09/09/19 10:29 Sodium Chloride Flush Syringe 10 Ml IV 10 ml BID CALVIN Administration Sodium Chloride 10 ml 09/08/19 23:08 Sodium Chloride Flush Syringe 10 Ml IV PRN PRN LINE FLUSH Tamsulosin HCl 0.4 mg 09/09/19 10:00 09/09/19 10:28 Flomax PO 0.4 mg QDAY CALVIN Administration Trazodone HCl 100 mg 09/09/19 22:00 Desyrel PO QHS CALVIN Nutrition/Malnutrition Assess - Dietary Evaluation Nutrition/Malnutrition Findings: Nutrition Notes Start: 09/09/19 10:35 Freq: Status: Active Protocol: Document 09/09/19 10:39 RS (Rec: 09/09/19 11:06 RS [id number]) Co-Sign 09/09/19 10:39 LP Nutrition Notes Need for Assessment generated from: MD Order Initial or Follow up Brief Note Current Diagnosis Diabetes,Hypertension Other Pertinent Diagnosis Dementia Current Diet Consistent CHO Labs/Tests BUN: 33 Cr:2.5 Pertinent Medications reviewed Height 5 ft 11 in Weight 82.7 kg [place] Body Weight (kg) 78.18 BMI 25.4 Weight change and time frame unable to get wt hx Weight Status Overweight Subjective/Other Information MD consult for malnutrition. Unable to retrieve accurate wt hx and PO intake [employer] d/t pt poor memory. No observed muscle/body fat wasting. Pt and nurse both unable to report PO consumption from bfast. Will need to consult pt sister for more accurate information. Sister was present at arrival to hospital but not present in room when pt was consulted. Burn Absent Trauma Absent Nutrition Intervention Follow-Up By: 09/11/19 Additional Comments F/U for PO intake and diet/wt hx if sister is present in room
--- NOTE | 2019-09-09 17:44 | Consultation ---
History of Present Illness - Reason for Consult Consult date: 09/09/19 acute renal failure Requesting physician: MOI FARMER - History of Present Illness 74-year-old male who was brought to the hospital by his sister after she found him down at home in his own feces. The patient denied any trauma or injury. The sister also did not believe there was any trauma injury. She states that he has been in and outs of rehab she can no longer take care of him at home as he requires more care than she can give. The patient receives Invega injections every month for treatment of schizophrenia. Presentation in the emergency room, blood pressure also is low as 87/51 mmHg. BUN/creatinine elevated at 31/2.7 mg/dL. I'm consulted to assist managing this. Patient is a poor historian and history is obtained from review of the records. Patient had acute kidney injury in 2017 in setting of rhabdomyolysis. Creatinine improved from 1.9 on admission to 1.3 mg/dL on discharge. No history of having any follow-up ascitic nephrology system. Past History Past Medical History: diabetes, hypertension, other (dementia, schizophrenia, BPH, ) Past Surgical History: No surgical history, Other (ruptured appendix) Social history: lives with family (lives with sister), smoking. denies: alcohol abuse (quit alcohol use years ago), prescription drug abuse, IV drug use Family history: no significant family history Medications and Allergies Allergies Allergy/AdvReac Type Severity Reaction Status Date / Time No Known Allergies Allergy Verified 11/10/17 15:28 Home Medications Medication Instructions Recorded Confirmed Last Taken Type Benztropine [Cogentin] 1 mg PO DAILY 11/10/17 09/08/19 Unknown History Finasteride [Proscar] 5 mg PO DAILY 11/10/17 09/08/19 Unknown History Losartan/Hydrochlorothiazide 1 each PO DAILY 11/10/17 09/08/19 Unknown History [Losartan-Hctz 100-25 mg Tab] Terazosin (Nf) [Hytrin (Nf)] 5 mg PO QHS 11/10/17 09/08/19 Unknown History Paliperidone Palmitate [Invega 234 mg IM QMONTH 09/08/19 09/08/19 08/31/19 History Sustenna] Simvastatin 20 mg PO QHS 09/08/19 09/08/19 Unknown History traZODone [Desyrel] 100 mg PO QHS 09/08/19 09/08/19 Unknown History Active Meds: Active Medications Acetaminophen (Tylenol) 650 mg PO Q4H PRN PRN Reason: Pain MILD(1-3)/Fever >100.5/RAMIREZ Benztropine Mesylate (Cogentin) 1 mg PO DAILY [facility] Last Admin: 09/09/19 10:27 Dose: 1 mg Documented by: Dextrose (D50w (25gm) Syringe) 50 ml IV PRN PRN PRN Reason: Hypoglycemia Enoxaparin Sodium (Lovenox) 30 mg SUB-Q QDAY [facility] Last Admin: 09/09/19 10:27 Dose: 30 mg Documented by: Finasteride (Proscar) 5 mg PO DAILY [facility] Last Admin: 09/09/19 10:28 Dose: 5 mg Documented by: Sodium Chloride (Nacl 0.9% 1000 Ml) 1,000 mls @ 125 mls/hr IV DIRECT [facility] Ceftriaxone Sodium (Rocephin/Ns 1 Gm/50 Ml) 1 gm in 50 mls @ 100 mls/hr IV Q24HR [facility]; Protocol Last Admin: 09/09/19 10:27 Dose: 100 mls/hr Documented by: Insulin Human Lispro (Humalog) 0 unit SUB-Q ACHS [facility]; Protocol Last Admin: 09/09/19 11:30 Dose: Not Given Documented by: Ondansetron HCl (Zofran) 4 mg IV Q8H PRN PRN Reason: Nausea And Vomiting Sodium Chloride (Sodium Chloride Flush Syringe 10 Ml) 10 ml IV BID [facility] Last Admin: 09/09/19 10:29 Dose: 10 ml Documented by: Sodium Chloride (Sodium Chloride Flush Syringe 10 Ml) 10 ml IV PRN PRN PRN Reason: LINE FLUSH Tamsulosin HCl (Flomax) 0.4 mg PO QDAY [facility] Last Admin: 09/09/19 10:28 Dose: 0.4 mg Documented by: Trazodone HCl (Desyrel) 100 mg PO QHS [facility] Review of Systems ROS unobtainable: due to mental status Exam - Vital Signs Vital signs: Vital Signs Pulse Resp 112 H 22 09/08/19 17:08 09/08/19 17:08 - Physical Exam Narrative exam: Elderly -Uz[place] male lying in bed in no acute distress HEENT: NCAT, pink oral mucous membrane Neck: Supple, no venous distention CVS: S1S2 RRR with no murmur, rub or gallop Chest: Clear to auscultation, increased anterior-posterior diameter Abdomen: Protuberant, soft, nontender, no organomegaly, bowel sounds are present Extremities: No edema Neuro: Awake, alert , confused conversation no focal deficits Results - Lab Results 09/10/19 05:13 09/10/19 05:13 Most recent lab results Calcium 7.6 mg/dL (8.4-10.2) L 09/09/19 05:43 Assessment and Plan - Patient Problems (1) WES (acute kidney injury) Current Visit: Yes Status: Acute Plan to address problem: Acute kidney injury probably prerenal azotemia secondary to hypotension. Get urine studies. Continue volume repletion. Follow-up electrolytes and renal function (2) Leukocytosis Current Visit: Yes Status: Acute Plan to address problem: Presumed sepsis. Follow-up cultures. Continue empiric antibiotics (3) Altered mental state Current Visit: No Status: Acute Qualifiers: Altered mental status type: unspecified Qualified Code(s): R41.82 - Altered mental status, unspecified Plan to address problem: Mental Status improved ? Baseline (4) Hypotension Current Visit: No Status: Acute Qualifiers: Hypotension type: unspecified hypotension type Qualified Code(s): I95.9 - Hypotension, unspecified Plan to address problem: Improving with volume depletion. (5) Benign prostatic hyperplasia Current Visit: Yes Status: Acute Plan to address problem: Continue medications per primary attending (6) Schizophrenia Current Visit: Yes Status: Acute Plan to address problem: Continue medications per primary attending (7) Bilateral renal cysts Current Visit: Yes Status: Acute Plan to address problem: Follow-up as an outpatient
[2019-09-09] MEDS: DESYREL PO SCH (23:59)
[2019-09-10 05:32] LABS: Hematocrit 34.2 % (35.5-45.6); Hemoglobin 11.2 gm/dl (11.8-15.2); Mean Corpuscular HGB Conc 33 % (32-34); Mean Corpuscular Volume 89 fl (84-94); Platelet Count 131 K/mm3 (140-440); Red Blood Count 3.84 M/mm3 (3.65-5.03)
[2019-09-10 06:01] LABS: Calcium 8.1 mg/dL (8.4-10.2)
[2019-09-10] MEDS: HumaLOG SUB-Q SCH ×4 (07:55→21:19)
[2019-09-10] MEDS: COGENTIN PO SCH (10:00)
[2019-09-10] MEDS: PROSCAR PO SCH (10:00)
[2019-09-10] MEDS: FLOMAX PO SCH (10:01)
[2019-09-10] MEDS: LOVENOX SUB-Q SCH (10:01)
[2019-09-10] MEDS: SODIUM CHLORIDE FLUSH SYRINGE 10 ML IV SCH ×2 (10:02→21:18)
--- NOTE | 2019-09-10 10:25 | Progress Note ---
Assessment and Plan Assessment and plan: 74-year-old -[place] male history of BPH, dementia, schizophrenia hypertension, and diabetes, who presents [facility] ED via EMS after being found down at home covered in feces and bodily fluids. WES due to vasomotor nephropathy -CT Abdomen/Pelvis shows Urinary bladder is mostly collapsed but grossly unremarkable. No free fluid or inflammation. Multiple bilateral renal cysts, several which are quite large, measuring up to 7 cm. -Cr on admission 2.7, now 1.8 -Hydrate with IVF -Avoid nephrotoxin agents -Renal dose all meds -Nephrology following Sepsis due to UTI -CXR unremarkable -Leukocytosis -Tachycardic with heart rate -Afebrile -Blood cultures No growth to date Consulted ID. Discussed with Dr. Urena UTI Cont Rocephin Leukocytosis Hypotension -BP on admission 87/59 -Responsive to fluid resuscitation -On IVF -Continue to monitor BP -Hold all antihypertensive meds Failure to Thrive -Pt currently lives at home with sister, who is unable to continue to care for him -Present to ED via EMS after being found down covered in feces and body fluids -PT/OT eval pending -Case management consulted Schizophrenia -Receives monthly Invega injections BPH -Continue finasteride -Start Flomax DM2 -HgbA1c 5.5 -SSI coverage prn Hx Dementia DVT PPX -on Lovenox History Interval history: Feels better No fever Hospitalist Physical - Physical exam Narrative exam: Gen: Not in acute distress, sitting up in bed HEENT: Normocephalic, atraumatic Neck: supple, no JVD Heart: S1 and S2 reg, no murmurs, rubs or gallop Lungs: Clear to auscultation, no rhonchi, no wheeze Abd: soft, non tender , no rebound tenderness, non distended, normal BS, Ext: No edema, no clubbing, no cyanosis Neuro: Awake, alert, moves all ext, no focal neurological signs - Constitutional Vitals: Temp Pulse Resp BP Pulse Ox 97.8 F 87 18 133/74 98 09/10/19 07:51 09/10/19 07:51 09/10/19 07:51 09/10/19 07:51 09/10/19 07:51 Results - Labs CBC & Chem 7: 09/10/19 05:13 09/10/19 05:13 Labs: Laboratory Last Values WBC 21.9 K/mm3 (4.5-11.0) H 09/10/19 05:13 RBC 3.84 M/mm3 (3.65-5.03) 09/10/19 05:13 Hgb 11.2 gm/dl (11.8-15.2) L 09/10/19 05:13 Hct 34.2 % (35.5-45.6) L 09/10/19 05:13 MCV 89 fl (84-94) 09/10/19 05:13 MCH 29 pg (28-32) 09/10/19 05:13 MCHC 33 % (32-34) 09/10/19 05:13 RDW 15.0 % (13.2-15.2) 09/10/19 05:13 Plt Count 131 K/mm3 (140-440) L 09/10/19 05:13 Lymph % (Auto) TNR 09/08/19 17:57 [place] % (Auto) TNR 09/08/19 17:57 Eos % (Auto) TNR 09/08/19 17:57 Baso % (Auto) TNR 09/08/19 17:57 Lymph # TNR 09/08/19 17:57 [place] # TNR 09/08/19 17:57 Eos # TNR 09/08/19 17:57 Baso # TNR 09/08/19 17:57 Add Manual Diff Complete 09/09/19 05:43 Total Counted 100 09/09/19 05:43 Seg Neutrophils % [employer] 09/09/19 05:43 Seg Neuts % (Manual) 55.0 % (40.0-70.0) 09/09/19 05:43 Band Neutrophils % 38.0 % 09/09/19 05:43 Lymphocytes % (Manual) 3.0 % (13.4-35.0) L 09/09/19 05:43 Reactive Lymphs % (Man) 0 % 09/09/19 05:43 Monocytes % (Manual) 2.0 % (0.0-7.3) 09/09/19 05:43 Eosinophils % (Manual) 0 % (0.0-4.3) 09/09/19 05:43 Basophils % (Manual) 0 % (0.0-1.8) 09/09/19 05:43 Metamyelocytes % 2.0 % 09/09/19 05:43 Myelocytes % 0 % 09/09/19 05:43 Promyelocytes % 0 % 09/09/19 05:43 Blast Cells % 0 % 09/09/19 05:43 Nucleated RBC % 1.0 % (0.0-0.9) H 09/09/19 05:43 Seg Neutrophils # TNR 09/08/19 17:57 Seg Neutrophils # Man 15.2 K/mm3 (1.8-7.7) H 09/09/19 05:43 Band Neutrophils # 10.5 K/mm3 09/09/19 05:43 Lymphocytes # (Manual) 0.8 K/mm3 (1.2-5.4) L 09/09/19 05:43 Abs React Lymphs (Man) 0.0 K/mm3 09/09/19 05:43 Monocytes # (Manual) 0.6 K/mm3 (0.0-0.8) 09/09/19 05:43 Eosinophils # (Manual) 0.0 K/mm3 (0.0-0.4) 09/09/19 05:43 Basophils # (Manual) 0.0 K/mm3 (0.0-0.1) 09/09/19 05:43 Metamyelocytes # 0.6 K/mm3 09/09/19 05:43 Myelocytes # 0.0 K/mm3 09/09/19 05:43 Promyelocytes # 0.0 K/mm3 09/09/19 05:43 Blast Cells # 0.0 K/mm3 09/09/19 05:43 WBC Morphology Not Reportable 09/09/19 05:43 Hypersegmented Neuts Not Reportable 09/09/19 05:43 Hyposegmented Neuts Not Reportable 09/09/19 05:43 Hypogranular Neuts Not Reportable 09/09/19 05:43 Smudge Cells Not Reportable 09/09/19 05:43 Toxic Granulation Not Reportable 09/09/19 05:43 Toxic Vacuolation Not Reportable 09/09/19 05:43 Dohle Bodies Not Reportable 09/09/19 05:43 Pelger-Huet Anomaly Not Reportable 09/09/19 05:43 Juan Rods Not Reportable 09/09/19 05:43 Platelet Estimate Consistent w auto 09/09/19 05:43 Clumped Platelets Not Reportable 09/09/19 05:43 Plt Clumps, EDTA Not Reportable 09/09/19 05:43 Large Platelets Not Reportable 09/09/19 05:43 Giant Platelets Not Reportable 09/09/19 05:43 Platelet Satelliting Not Reportable 09/09/19 05:43 Plt Morphology Comment Not Reportable 09/09/19 05:43 RBC Morphology Not Reportable 09/09/19 05:43 Dimorphic RBCs Not Reportable 09/09/19 05:43 Polychromasia Not Reportable 09/09/19 05:43 Hypochromasia Not Reportable 09/09/19 05:43 Poikilocytosis Not Reportable 09/09/19 05:43 Anisocytosis 1+ 09/09/19 05:43 Microcytosis Not Reportable 09/09/19 05:43 Macrocytosis Not Reportable 09/09/19 05:43 Spherocytes Not Reportable 09/09/19 05:43 Pappenheimer Bodies Not Reportable 09/09/19 05:43 Sickle Cells Not Reportable 09/09/19 05:43 Target Cells Not Reportable 09/09/19 05:43 Tear Drop Cells Not Reportable 09/09/19 05:43 Ovalocytes Few 09/09/19 05:43 Helmet Cells Not Reportable 09/09/19 05:43 Matt-Rover Bodies Not Reportable 09/09/19 05:43 [place] Rings Not Reportable 09/09/19 05:43 Hemanth Cells Not Reportable 09/09/19 05:43 Bite Cells Not Reportable 09/09/19 05:43 Crenated Cell Not Reportable 09/09/19 05:43 Elliptocytes Not Reportable 09/09/19 05:43 Acanthocytes (Spur) Not Reportable 09/09/19 05:43 Rouleaux Not Reportable 09/09/19 05:43 Hemoglobin C Crystals Not Reportable 09/09/19 05:43 Schistocytes Not Reportable 09/09/19 05:43 Malaria parasites Not Reportable 09/09/19 05:43 Tariq Bodies Not Reportable 09/09/19 05:43 Hem Pathologist Commnt No 09/09/19 05:43 Sodium 138 mmol/L (137-145) 09/10/19 05:13 Potassium 4.0 mmol/L (3.6-5.0) 09/10/19 05:13 Chloride 103.3 mmol/L (98-107) 09/10/19 05:13 Carbon Dioxide 23 mmol/L (22-30) 09/10/19 05:13 Anion Gap 16 mmol/L 09/10/19 05:13 BUN 36 mg/dL (9-20) H 09/10/19 05:13 Creatinine 1.8 mg/dL (0.8-1.5) H 09/10/19 05:13 Estimated GFR 45 ml/min 09/10/19 05:13 BUN/Creatinine Ratio 20 % 09/10/19 05:13 Glucose 86 mg/dL (75-100) 09/10/19 05:13 POC Glucose 97 (70-105) 09/10/19 07:58 Hemoglobin A1c 5.5 % (4-6) 09/09/19 00:21 Lactic Acid 0.90 mmol/L (0.7-2.0) 09/10/19 05:13 Calcium 8.1 mg/dL (8.4-10.2) L 09/10/19 05:13 Total Bilirubin 0.50 mg/dL (0.1-1.2) 09/08/19 17:57 AST 15 units/L (5-40) 09/08/19 17:57 ALT 7 units/L (7-56) 09/08/19 17:57 Alkaline Phosphatase 83 units/L (35-129) 09/08/19 17:57 Total Creatine Kinase 563 units/L (55-170) H 09/09/19 00:21 Troponin T < 0.010 ng/mL (0.00-0.029) 09/08/19 20:54 Total Protein 7.2 g/dL (6.3-8.2) 09/08/19 17:57 Albumin 3.6 g/dL (3.9-5) L 09/08/19 17:57 Albumin/Globulin Ratio 1.0 % 09/08/19 17:57 Urine Color Yellow (Yellow) 09/08/19 02:00 Urine Turbidity Cloudy (Clear) 09/08/19 02:00 Urine pH 5.0 (5.0-7.0) 09/08/19 02:00 Ur Specific [place] 1.014 (1.003-1.030) 09/08/19 02:00 Urine Protein 100 mg/dl mg/dL (Negative) 09/08/19 02:00 Urine Glucose (UA) Neg mg/dL (Negative) 09/08/19 02:00 Urine Ketones Neg mg/dL (Negative) 09/08/19 02:00 Urine Blood Mod (Negative) 09/08/19 02:00 Urine Nitrite Neg (Negative) 09/08/19 02:00 Urine Bilirubin Neg (Negative) 09/08/19 02:00 Urine Urobilinogen < 2.0 mg/dL (<2.0) 09/08/19 02:00 Ur Leukocyte Esterase Lg (Negative) 09/08/19 02:00 Urine WBC (Auto) > 182.0 /HPF (0.0-6.0) H 09/08/19 02:00 Urine RBC (Auto) 41.0 /HPF (0.0-6.0) 09/08/19 02:00 Urine Bacteria (Auto) 1+ /HPF (Negative) 09/08/19 02:00 Urine Mucus Few /HPF 09/08/19 02:00 Urine Creatinine 88.0 mg/dL (0.1-20.0) H 09/09/19 21:30 Urine Sodium 112 mmol/L 09/09/19 21:30 Urine Total Protein 28 mg/dL (5-11.8) H 09/09/19 21:30 Active Medications - Current Medications Current Medications: Generic Name Dose Route Start Last Admin Trade Name Freq PRN Reason Stop Dose Admin Acetaminophen 650 mg 09/08/19 23:08 Tylenol PO Q4H PRN Pain MILD(1-3)/Fever >100.5/RAMIREZ Benztropine Mesylate 1 mg 09/09/19 10:00 09/10/19 10:00 Cogentin PO 1 mg DAILY [facility] Administration Dextrose 50 ml 09/08/19 23:28 D50w (25gm) Syringe IV PRN PRN Hypoglycemia Enoxaparin Sodium 30 mg 09/09/19 10:00 09/10/19 10:01 Lovenox SUB-Q 30 mg QDAY [facility] Administration Finasteride 5 mg 09/09/19 10:00 09/10/19 10:00 Proscar PO 5 mg DAILY [facility] Administration Sodium Chloride 1,000 mls @ 125 mls/hr 09/08/19 23:45 Nacl 0.9% 1000 Ml IV DIRECT [facility] Ceftriaxone Sodium 1 gm in 50 mls @ 100 mls/hr 09/09/19 10:00 09/09/19 10:27 Rocephin/Ns 1 Gm/50 Ml IV 100 mls/hr Q24HR [facility] Administration Protocol Insulin Human Lispro 0 unit 09/09/19 07:30 09/10/19 07:55 Humalog SUB-Q Not Given ACHS [facility] Protocol Ondansetron HCl 4 mg 09/08/19 23:08 Zofran IV Q8H PRN Nausea And Vomiting Sodium Chloride 10 ml 09/09/19 10:00 09/10/19 10:02 Sodium Chloride Flush Syringe 10 Ml IV 10 ml BID [facility] Administration Sodium Chloride 10 ml 09/08/19 23:08 Sodium Chloride Flush Syringe 10 Ml IV PRN PRN LINE FLUSH Tamsulosin HCl 0.4 mg 09/09/19 10:00 09/10/19 10:01 Flomax PO 0.4 mg QDAY [facility] Administration Trazodone HCl 100 mg 09/09/19 22:00 09/09/19 23:59 Desyrel PO 100 mg QHS [facility] Administration Nutrition/Malnutrition Assess - Dietary Evaluation Nutrition/Malnutrition Findings: Nutrition Notes Start: 09/09/19 10:35 Freq: Status: Active Protocol: Document 09/09/19 10:39 RS (Rec: 09/09/19 11:06 RS [id number]) Co-Sign 09/09/19 10:39 LP Nutrition Notes Need for Assessment generated from: MD Order Initial or Follow up Brief Note Current Diagnosis Diabetes,Hypertension Other Pertinent Diagnosis Dementia Current Diet Consistent CHO Labs/Tests BUN: 33 Cr:2.5 Pertinent Medications reviewed Height 5 ft 11 in Weight 82.7 kg [place] Body Weight (kg) 78.18 BMI 25.4 Weight change and time frame unable to get wt hx Weight Status Overweight Subjective/Other Information MD consult for malnutrition. Unable to retrieve accurate wt hx and PO intake [employer] d/t pt poor memory. No observed muscle/body fat wasting. Pt and nurse both unable to report PO consumption from bfast. Will need to consult pt sister for more accurate information. Sister was present at arrival to hospital but not present in room when pt was consulted. Burn Absent Trauma Absent Nutrition Intervention Follow-Up By: 10/11/19 Additional Comments F/U for PO intake and diet/wt hx if sister is present in room
[2019-09-10] MEDS: ROCEPHIN/NS 1 GM/50 ML 1 GM/50 ML BAG IV SCH (10:35)
--- NOTE | 2019-09-10 11:01 | Consultation ---
History of Present Illness - Reason for Consult Consult date: 09/10/19 - History of Present Illness 74 yo M PMHx BPH, dementia, schizophrenia, DM2 admitted to the hospital after being found down. The patient is a poor historian due to the dementia and as such the history is obtained from the chart. It's noted that when he was found he was covered in feces and bodily fluids. Family members denied any injury or trauma, and he lives at home with his sister. Unclear exactly as to how long he was down for or the circumstances of his loss of consciousness. Afebrile since admission with an elevated white count now of 22. Currently receiving ceftriaxone. Blood cultures NGTD, urine cultures pending. Imaging personally reviewed: CTAP: bilateral renal cysts CXR: NAD Review of Systems: Bold if positive, otherwise negative General: fevers, chills, rigors HEENT: visual disturbance, diplopia, eye pain Respiratory: cough, sputum, hemoptysis, shortness of breath Cardiovascular: chest pain, syncope Gastrointestinal: nausea, vomiting, diarrhea, abdominal pain Genitourinary: dysuria, hematuria, flank pain Musculoskeletal: neck pain, back pain, joint pain, edema Neurologic: headaches, seizures Hematologic: easy bruising or bleeding Endocrine: night sweats, acute weight loss Skin: rash, jaundice, redness Psychiatric: suicidal, homicidal ideation Past History Past Medical History: diabetes, hypertension, other (dementia, schizophrenia, BPH, ) Past Surgical History: No surgical history, Other (ruptured appendix) Social history: lives with family (lives with sister), smoking. denies: alcohol abuse (quit alcohol use years ago), prescription drug abuse, IV drug use Family history: hypertension Medications and Allergies Allergies Allergy/AdvReac Type Severity Reaction Status Date / Time No Known Allergies Allergy Verified 11/10/17 15:28 Home Medications Medication Instructions Recorded Confirmed Last Taken Type Benztropine [Cogentin] 1 mg PO DAILY 11/10/17 09/08/19 Unknown History Finasteride [Proscar] 5 mg PO DAILY 11/10/17 09/08/19 Unknown History Losartan/Hydrochlorothiazide 1 each PO DAILY 11/10/17 09/08/19 Unknown History [Losartan-Hctz 100-25 mg Tab] Terazosin (Nf) [Hytrin (Nf)] 5 mg PO QHS 11/10/17 09/08/19 Unknown History Paliperidone Palmitate [Invega 234 mg IM QMONTH 09/08/19 09/08/19 08/31/19 History Sustenna] Simvastatin 20 mg PO QHS 09/08/19 09/08/19 Unknown History traZODone [Desyrel] 100 mg PO QHS 09/08/19 09/08/19 Unknown History Active Meds: Active Medications Acetaminophen (Tylenol) 650 mg PO Q4H PRN PRN Reason: Pain MILD(1-3)/Fever >100.5/RAMIREZ Benztropine Mesylate (Cogentin) 1 mg PO DAILY [facility] Last Admin: 09/10/19 10:00 Dose: 1 mg Documented by: Dextrose (D50w (25gm) Syringe) 50 ml IV PRN PRN PRN Reason: Hypoglycemia Enoxaparin Sodium (Lovenox) 30 mg SUB-Q QDAY [facility] Last Admin: 09/10/19 10:01 Dose: 30 mg Documented by: Finasteride (Proscar) 5 mg PO DAILY [facility] Last Admin: 09/10/19 10:00 Dose: 5 mg Documented by: Sodium Chloride (Nacl 0.9% 1000 Ml) 1,000 mls @ 125 mls/hr IV DIRECT [facility] Ceftriaxone Sodium (Rocephin/Ns 2 Gm/100 Ml) 2 gm in 100 mls @ 200 mls/hr IV Q24HR [facility]; Protocol Insulin Human Lispro (Humalog) 0 unit SUB-Q ACHS [facility]; Protocol Last Admin: 09/10/19 07:55 Dose: Not Given Documented by: Ondansetron HCl (Zofran) 4 mg IV Q8H PRN PRN Reason: Nausea And Vomiting Sodium Chloride (Sodium Chloride Flush Syringe 10 Ml) 10 ml IV BID [facility] Last Admin: 09/10/19 10:02 Dose: 10 ml Documented by: Sodium Chloride (Sodium Chloride Flush Syringe 10 Ml) 10 ml IV PRN PRN PRN Reason: LINE FLUSH Tamsulosin HCl (Flomax) 0.4 mg PO QDAY [facility] Last Admin: 09/10/19 10:01 Dose: 0.4 mg Documented by: Trazodone HCl (Desyrel) 100 mg PO QHS [facility] Last Admin: 09/09/19 23:59 Dose: 100 mg Documented by: Physical Examination - Physical Exam Narrative exam: Constitutional: Alert, cooperative. No acute distress Head, Ears, Nose: Normocephalic, atraumatic. External ears, nose normal Eyes: Conjunctivae/corneas clear. No icterus. No ptosis. Neck: Supple, no meningeal signs Oral: dentition fair, no thrush Cardiovascular: S1, S2 normal. Respiratory: Good air entry, clear to auscultation bilaterally GI: Soft, non-tender; bowel sounds normal. No peritoneal signs. Musculoskeletal: No pedal edema, no cyanosis. Skin: No rash or abscess Hem/Lymphatic: No palpable cervical or supraclavicular nodes. No lymphangitis Psych: Mood ok. Affect normal Neurological: Awake, alert, oriented. No gross abnormality - Constitutional Vitals: Vital Signs Temp Pulse Resp BP Pulse Ox 97.8 F 87 18 133/74 98 09/10/19 07:51 09/10/19 07:51 09/10/19 07:51 09/10/19 07:51 09/10/19 07:51 Temperature -Last 24 Hours Temperature 97.8 F Temperature 98.3 F Temperature 97.2 F Results - Labs CBC & Chem 7: 09/10/19 05:13 09/10/19 05:13 Labs: Abnormal lab results 09/09/19 09/10/19 09/10/19 Range/Units 21:30 05:13 05:13 WBC 21.9 H (4.5-11.0) K/mm3 Hgb 11.2 L (11.8-15.2) gm/dl Hct 34.2 L (35.5-45.6) % Plt Count 131 L (140-440) K/mm3 BUN 36 H (9-20) mg/dL Creatinine 1.8 H (0.8-1.5) mg/dL Calcium 8.1 L (8.4-10.2) mg/dL Urine Creatinine 88.0 H (0.1-20.0) mg/dL Urine Total Protein 28 H (5-11.8) mg/dL Assessment and Plan Cultures: 09/08 BCx - NGTD UCx - pending A/P: 74 yo M PMHx BPH, dementia, schizophrenia, DM2 admitted after being found down; found to have UTI 1. Acute sepsis - present on admission with tachycardia and leukoctyosis. Secondary to UTI 2. UTI - pending urine cultures. WBC initially worsened, now improved. Continue ceftriaxone, but increased dose to 2g. 3. Dementia 4. WES - renally adjust medications 5. DM2 - tight glycemic control for optimal immune function. Recs: - follow up blood and urine cultures - increased ceftriaxone to 2g q24h. Possible de-escalation pending cultures - renally adjust antibiotics as necessary. Thank you for the consult, we will continue to follow. Naveed Urena MD [facility] M: [phone] O: [phone] F: [phone]
--- NOTE | 2019-09-10 11:07 | Progress Note ---
Assessment and Plan - Patient Problems (1) WES (acute kidney injury) Current Visit: Yes Status: Acute Plan to address problem: Acute kidney injury probably prerenal azotemia secondary to hypotension. Kidney function is improving. Continue volume repletion. Follow-up electrolytes and renal function (2) Leukocytosis Current Visit: Yes Status: Acute Plan to address problem: Presumed sepsis. Cultures negative so far. Follow-up cultures. (3) Altered mental state Current Visit: No Status: Acute Qualifiers: Altered mental status type: unspecified Qualified Code(s): R41.82 - Altered mental status, unspecified Plan to address problem: Mental Status improved ? Baseline (4) Hypotension Current Visit: No Status: Acute Qualifiers: Hypotension type: unspecified hypotension type Qualified Code(s): I95.9 - Hypotension, unspecified Plan to address problem: Improving with volume depletion. (5) Benign prostatic hyperplasia Current Visit: Yes Status: Acute Plan to address problem: Continue medications per primary attending (6) Schizophrenia Current Visit: Yes Status: Acute Plan to address problem: Continue medications per primary attending (7) Bilateral renal cysts Current Visit: Yes Status: Acute Plan to address problem: Follow-up as an outpatient Subjective Date of service: 09/10/19 Principal diagnosis: acute kidney injury Interval history: Patient seen lying in bed. He has no complaints. Eating breakfast Objective - Exam Narrative Exam: Elderly -[place]ic male lying in bed in no acute distress HEENT: NCAT, pink oral mucous membrane Neck: Supple, no venous distention CVS: S1S2 RRR with no murmur, rub or gallop Chest: Clear to auscultation, increased anterior-posterior diameter Abdomen: Protuberant, soft, nontender, no organomegaly, bowel sounds are present Extremities: No edema Neuro: Awake, alert , confused conversation no focal deficits - Vital Signs Vital signs: Vital Signs - 12hr 09/10/19 09/10/19 01:56 07:51 Temperature 98.3 F 97.8 F Pulse Rate 91 H 87 Respiratory 18 18 Rate Blood Pressure 120/78 133/74 O2 Sat by Pulse 95 98 Oximetry - Lab 09/10/19 05:13 09/10/19 05:13 Most recent lab results Calcium 8.1 mg/dL (8.4-10.2) L 09/10/19 05:13 Urine Creatinine 88.0 mg/dL (0.1-20.0) H 09/09/19 21:30 Urine Sodium 112 mmol/L 09/09/19 21:30 Urine Total Protein 28 mg/dL (5-11.8) H 09/09/19 21:30 Medications & Allergies - Medications Allergies/Adverse Reactions: Allergies No Known Allergies Allergy (Verified 11/10/17 15:28) Home Medications: Home Medications Medication Instructions Recorded Confirmed Last Taken Type Benztropine [Cogentin] 1 mg PO DAILY 11/10/17 09/08/19 Unknown History Finasteride [Proscar] 5 mg PO DAILY 11/10/17 09/08/19 Unknown History Losartan/Hydrochlorothiazide 1 each PO DAILY 11/10/17 09/08/19 Unknown History [Losartan-Hctz 100-25 mg Tab] Terazosin (Nf) [Hytrin (Nf)] 5 mg PO QHS 11/10/17 09/08/19 Unknown History Paliperidone Palmitate [Invega 234 mg IM QMONTH 09/08/19 09/08/19 08/31/19 History Sustenna] Simvastatin 20 mg PO QHS 09/08/19 09/08/19 Unknown History traZODone [Desyrel] 100 mg PO QHS 09/08/19 09/08/19 Unknown History Active Medications: Generic Name Dose Route Start Last Admin Trade Name Freq PRN Reason Stop Dose Admin Acetaminophen 650 mg 09/08/19 23:08 Tylenol PO Q4H PRN Pain MILD(1-3)/Fever >100.5/RAMIREZ Benztropine Mesylate 1 mg 09/09/19 10:00 09/10/19 10:00 Cogentin PO 1 mg DAILY CALVIN Administration Dextrose 50 ml 09/08/19 23:28 D50w (25gm) Syringe IV PRN PRN Hypoglycemia Enoxaparin Sodium 30 mg 09/09/19 10:00 09/10/19 10:01 Lovenox SUB-Q 30 mg QDAY [facility] Administration Finasteride 5 mg 09/09/19 10:00 09/10/19 10:00 Proscar PO 5 mg DAILY [facility] Administration Sodium Chloride 1,000 mls @ 125 mls/hr 09/08/19 23:45 Nacl 0.9% 1000 Ml IV DIRECT [facility] Ceftriaxone Sodium 2 gm in 100 mls @ 200 mls/hr 09/11/19 10:00 Rocephin/Ns 2 Gm/100 Ml IV Q24HR [facility] Protocol Insulin Human Lispro 0 unit 09/09/19 07:30 09/10/19 07:55 Humalog SUB-Q Not Given ACHS [facility] Protocol Ondansetron HCl 4 mg 09/08/19 23:08 Zofran IV Q8H PRN Nausea And Vomiting Sodium Chloride 10 ml 09/09/19 10:00 09/10/19 10:02 Sodium Chloride Flush Syringe 10 Ml IV 10 ml BID [facility] Administration Sodium Chloride 10 ml 09/08/19 23:08 Sodium Chloride Flush Syringe 10 Ml IV PRN PRN LINE FLUSH Tamsulosin HCl 0.4 mg 09/09/19 10:00 09/10/19 10:01 Flomax PO 0.4 mg QDAY [facility] Administration Trazodone HCl 100 mg 09/09/19 22:00 09/09/19 23:59 Desyrel PO 100 mg QHS [facility] Administration
[2019-09-10] MEDS: NACL 0.9% 1000 ML 1,000 ML IV SCH (20:47)
[2019-09-10] MEDS: DESYREL PO SCH (21:17)
[2019-09-11] MEDS: NACL 0.9% 1000 ML 1,000 ML IV SCH ×3 (04:44→21:16)
[2019-09-11 04:59] LABS: Hematocrit 31.1 % (35.5-45.6); Hemoglobin 10.1 gm/dl (11.8-15.2); Mean Corpuscular HGB Conc 33 % (32-34); Mean Corpuscular Volume 89 fl (84-94); Platelet Count 139 K/mm3 (140-440); Red Blood Count 3.49 M/mm3 (3.65-5.03); Red Cell Distribution Width 14.9 % (13.2-15.2)
[2019-09-11 05:22] LABS: Calcium 8.2 mg/dL (8.4-10.2)
[2019-09-11] MEDS: HumaLOG SUB-Q SCH ×4 (07:56→22:15)
[2019-09-11] MEDS: ROCEPHIN/NS 2 GM/100 ML 2 GM/100 ML BAG IV SCH (09:05)
[2019-09-11] MEDS: SODIUM CHLORIDE FLUSH SYRINGE 10 ML IV SCH ×2 (09:07→21:17)
[2019-09-11] MEDS: PROSCAR PO SCH (09:07)
[2019-09-11] MEDS: FLOMAX PO SCH (09:07)
[2019-09-11] MEDS: LOVENOX SUB-Q SCH (09:07)
[2019-09-11] MEDS: COGENTIN PO SCH (09:07)
--- NOTE | 2019-09-11 12:20 | Progress Note ---
Assessment and Plan Cultures: 09/08 BCx - NGTD UCx - negative A/P: 74 yo M PMHx BPH, dementia, schizophrenia, DM2 admitted after being found down; found to have UTI 1. Acute sepsis - present on admission with tachycardia and leukoctyosis. Secondary to UTI 2. UTI - pending urine cultures. WBC initially worsened, now improved. Cultures negative. When discharging would send home on PO cefdinir 300mg q12h to complete 7 days therapy. 3. Dementia 4. WES - renally adjust medications 5. DM2 - tight glycemic control for optimal immune function. Recs: - follow up blood and urine cultures - continue ceftriaxone 2g q24h while inpatient - ok for discharge from ID perspective. - on discharge please given cefdinir 300mg q12h until stop date: 09/15/19 - renally adjust antibiotics as necessary. Thank you for the consult, we will sign off. Please call with questions. Naveed Urena MD [facility] M: [phone] O: [phone] F: [phone] Subjective Date of service: 09/11/19 Principal diagnosis: acute kidney injury Interval history: No acute complaints. Sitting up in bed. Afebrile, improving leukocytosis. Objective - Exam Narrative Exam: Constitutional: Alert, cooperative. No acute distress Oral: dentition fair, no thrush Cardiovascular: S1, S2 normal. Respiratory: Good air entry, clear to auscultation bilaterally GI: Soft, non-tender; bowel sounds normal. No peritoneal signs. Musculoskeletal: No pedal edema, no cyanosis. Skin: No rash or abscess Hem/Lymphatic: No palpable cervical or supraclavicular nodes. No lymphangitis Psych: Mood ok. Affect normal Neurological: Awake, alert, oriented. No gross abnormality - Constitutional Vitals: Vital Signs Temp Pulse Resp BP Pulse Ox 97.5 F L 82 18 133/83 97 09/11/19 07:28 09/11/19 10:00 09/11/19 11:00 09/11/19 07:28 09/11/19 10:00 Temperature -Last 24 Hours Temperature 97.5 F Temperature 97.4 F Temperature 97.4 F Temperature 97.9 F - Labs CBC & Chem 7: 09/11/19 03:30 09/11/19 03:30 Labs: Abnormal lab results 09/11/19 09/11/19 09/11/19 Range/Units 03:30 03:30 07:15 WBC 16.2 H (4.5-11.0) K/mm3 RBC 3.49 L (3.65-5.03) M/mm3 Hgb 10.1 L (11.8-15.2) gm/dl Hct 31.1 L (35.5-45.6) % Plt Count 139 L (140-440) K/mm3 BUN 34 H (9-20) mg/dL Creatinine 1.6 H (0.8-1.5) mg/dL POC Glucose 116 H (70-105) Calcium 8.2 L (8.4-10.2) mg/dL 09/11/19 Range/Units 11:38 WBC (4.5-11.0) K/mm3 RBC (3.65-5.03) M/mm3 Hgb (11.8-15.2) gm/dl Hct (35.5-45.6) % Plt Count (140-440) K/mm3 BUN (9-20) mg/dL Creatinine (0.8-1.5) mg/dL POC Glucose 108 H (70-105) Calcium (8.4-10.2) mg/dL
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
--- NOTE | 2019-09-11 17:07 | Progress Note ---
Assessment and Plan - Patient Problems (1) WES (acute kidney injury) Current Visit: Yes Status: Acute Plan to address problem: Acute kidney injury probably prerenal azotemia secondary to hypotension. Kidney function is improving. Continue volume repletion. Follow-up electrolytes and renal function (2) Leukocytosis Current Visit: Yes Status: Acute Plan to address problem: Presumed sepsis. Cultures negative so far. Follow-up cultures. (3) Altered mental state Current Visit: No Status: Acute Qualifiers: Altered mental status type: unspecified Qualified Code(s): R41.82 - Altered mental status, unspecified Plan to address problem: Mental Status improved ? Baseline (4) Hypotension Current Visit: No Status: Acute Qualifiers: Hypotension type: unspecified hypotension type Qualified Code(s): I95.9 - Hypotension, unspecified Plan to address problem: Improving with volume depletion. (5) Benign prostatic hyperplasia Current Visit: Yes Status: Acute Plan to address problem: Continue medications per primary attending (6) Schizophrenia Current Visit: Yes Status: Acute Plan to address problem: Continue medications per primary attending (7) Bilateral renal cysts Current Visit: Yes Status: Acute Plan to address problem: Follow-up as an outpatient Subjective Date of service: 09/11/19 Principal diagnosis: acute kidney injury Interval history: Patient seen lying in bed. He has no complaints. Still a bit confused Objective - Exam Narrative Exam: Elderly -[place] male lying in bed in no acute distress HEENT: NCAT, pink oral mucous membrane Neck: Supple, no venous distention CVS: S1S2 RRR with no murmur, rub or gallop Chest: Clear to auscultation, increased anterior-posterior diameter Abdomen: Protuberant, soft, nontender, no organomegaly, bowel sounds are present Extremities: No edema Neuro: Awake, alert , confused conversation no focal deficits - Vital Signs Vital signs: Vital Signs - 12hr 09/11/19 09/11/19 09/11/19 07:28 10:00 11:00 Temperature 97.5 F L Pulse Rate 82 Pulse Rate [ 82 Right Radial] Respiratory 18 18 Rate Respiratory 18 Rate [Right Leg ] Blood Pressure 133/83 O2 Sat by Pulse 97 97 Oximetry 09/11/19 13:06 Temperature Pulse Rate 90 Pulse Rate [ Right Radial] Respiratory Rate Respiratory Rate [Right Leg ] Blood Pressure 126/76 O2 Sat by Pulse 97 Oximetry - Lab 09/11/19 03:30 10/11/19 03:30 Most recent lab results Calcium 8.2 mg/dL (8.4-10.2) L 09/11/19 03:30 Urine Creatinine 88.0 mg/dL (0.1-20.0) H 09/09/19 21:30 Urine Sodium 112 mmol/L 09/09/19 21:30 Urine Total Protein 28 mg/dL (5-11.8) H 09/09/19 21:30 Medications & Allergies - Medications Allergies/Adverse Reactions: Allergies No Known Allergies Allergy (Verified 11/10/17 15:28) Home Medications: Home Medications Medication Instructions Recorded Confirmed Last Taken Type Benztropine [Cogentin] 1 mg PO DAILY 11/10/17 09/08/19 Unknown History Finasteride [Proscar] 5 mg PO DAILY 11/10/17 09/08/19 Unknown History Losartan/Hydrochlorothiazide 1 each PO DAILY 11/10/17 09/08/19 Unknown History [Losartan-Hctz 100-25 mg Tab] Terazosin (Nf) [Hytrin (Nf)] 5 mg PO QHS 11/10/17 09/08/19 Unknown History Paliperidone Palmitate [Invega 234 mg IM QMONTH 09/08/19 09/08/19 08/31/19 History Sustenna] Simvastatin 20 mg PO QHS 09/08/19 09/08/19 Unknown History traZODone [Desyrel] 100 mg PO QHS 09/08/19 09/08/19 Unknown History Active Medications: Generic Name Dose Route Start Last Admin Trade Name Freq PRN Reason Stop Dose Admin Acetaminophen 650 mg 09/08/19 23:08 Tylenol PO Q4H PRN Pain MILD(1-3)/Fever >100.5/RMAIREZ Benztropine Mesylate 1 mg 09/09/19 10:00 09/11/19 09:07 Cogentin PO 1 mg DAILY [facility] Administration Dextrose 50 ml 09/08/19 23:28 D50w (25gm) Syringe IV PRN PRN Hypoglycemia Enoxaparin Sodium 40 mg 09/12/19 10:00 Lovenox SUB-Q QDAY@1000 [facility] Finasteride 5 mg 09/09/19 10:00 09/11/19 09:07 Proscar PO 5 mg DAILY [facility] Administration Sodium Chloride 1,000 mls @ 125 mls/hr 09/08/19 23:45 09/11/19 13:20 Nacl 0.9% 1000 Ml IV 125 mls/hr DIRECT [facility] Administration Ceftriaxone Sodium 2 gm in 100 mls @ 200 mls/hr 09/11/19 10:00 09/11/19 09:05 Rocephin/Ns 2 Gm/100 Ml IV 200 mls/hr Q24HR [facility] Administration Protocol Insulin Human Lispro 0 unit 09/09/19 07:30 09/11/19 16:59 Humalog SUB-Q 1 unit ACHS [facility] Administration Protocol Ondansetron HCl 4 mg 09/08/19 23:08 Zofran IV Q8H PRN Nausea And Vomiting Sodium Chloride 10 ml 09/09/19 10:00 09/11/19 09:07 Sodium Chloride Flush Syringe 10 Ml IV 10 ml BID [facility] Administration Sodium Chloride 10 ml 09/08/19 23:08 Sodium Chloride Flush Syringe 10 Ml IV PRN PRN LINE FLUSH Tamsulosin HCl 0.4 mg 09/09/19 10:00 09/11/19 09:07 Flomax PO 0.4 mg QDAY [facility] Administration Trazodone HCl 100 mg 09/09/19 22:00 09/10/19 21:17 Desyrel PO 100 mg QHS [facility] Administration
[2019-09-11] MEDS: DESYREL PO SCH (21:16)
[2019-09-12 05:18] LABS: Hematocrit 30.6 % (35.5-45.6); Hemoglobin 10.1 gm/dl (11.8-15.2); Mean Corpuscular HGB Conc 33 % (32-34); Mean Corpuscular Volume 88 fl (84-94); Platelet Count 150 K/mm3 (140-440); Red Blood Count 3.47 M/mm3 (3.65-5.03); Red Cell Distribution Width 15.2 % (13.2-15.2)
[2019-09-12 05:25] LABS: BUN/Creatinine Ratio 21; Blood Urea Nitrogen 25 mg/dL (9-20); Hemolysis Index 14
[2019-09-12] MEDS: NACL 0.9% 1000 ML 1,000 ML IV SCH ×2 (05:37→13:40)
--- NOTE | 2019-09-12 08:53 | Progress Note ---
Assessment and Plan Assessment and plan: 74-year-old -[place] male history of BPH, dementia, schizophrenia hypertension, and diabetes, who presents [facility] ED via EMS after being found down at home covered in feces and bodily fluids. WES due to vasomotor nephropathy -CT Abdomen/Pelvis shows Urinary bladder is mostly collapsed but grossly unremarkable. No free fluid or inflammation. Multiple bilateral renal cysts, several which are quite large, measuring up to 7 cm. -Cr on admission 2.7, now 1.6 -Hydrate with IVF -Avoid nephrotoxin agents -Renal dose all meds -Nephrology following Sepsis due to UTI -CXR unremarkable -Leukocytosis -Tachycardic with heart rate -Afebrile -Blood cultures No growth to date Consulted ID. Discussed with Dr. Urena UTI Cont Rocephin Leukocytosis Hypotension -BP now stable -Responsive to fluid resuscitation -On IVF -Continue to monitor BP -Hold all antihypertensive meds Failure to Thrive -Pt currently lives at home with sister, who is unable to continue to care for him -Present to ED via EMS after being found down covered in feces and body fluids -PT/OT eval pending -Case management consulted Schizophrenia -Receives monthly Invega injections BPH -Continue finasteride -Start Flomax DM2 -HgbA1c 5.5 -SSI coverage prn Hx Dementia DVT PPX -on Lovenox Patient medically stable for discharge. Awaiting Level 2 eval for placement History Interval history: Feels better No new complaints Hospitalist Physical - Physical exam Narrative exam: Gen: Not in acute distress, sitting up in bed HEENT: Normocephalic, atraumatic Neck: supple, no JVD Heart: S1 and S2 reg, no murmurs, rubs or gallop Lungs: Clear to auscultation, no rhonchi, no wheeze Abd: soft, non tender , no rebound tenderness, non distended, normal BS, Ext: No edema, no clubbing, no cyanosis Neuro: Awake, alert, moves all ext, no focal neurological signs - Constitutional Vitals: Temp Pulse Resp BP Pulse Ox 97.6 F 71 18 142/78 98 09/12/19 07:24 09/12/19 07:24 09/12/19 07:24 09/12/19 07:24 09/12/19 07:24 Results - Labs CBC & Chem 7: 09/12/19 04:00 09/12/19 04:00 Labs: Laboratory Last Values WBC 11.5 K/mm3 (4.5-11.0) H 09/12/19 04:00 RBC 3.47 M/mm3 (3.65-5.03) L 09/12/19 04:00 Hgb 10.1 gm/dl (11.8-15.2) L 09/12/19 04:00 Hct 30.6 % (35.5-45.6) L 09/12/19 04:00 MCV 88 fl (84-94) 09/12/19 04:00 MCH 29 pg (28-32) 09/12/19 04:00 MCHC 33 % (32-34) 09/12/19 04:00 RDW 15.2 % (13.2-15.2) 09/12/19 04:00 Plt Count 150 K/mm3 (140-440) 09/12/19 04:00 Lymph % (Auto) TNR 09/08/19 17:57 [place] % (Auto) TNR 09/08/19 17:57 Eos % (Auto) TNR 09/08/19 17:57 Baso % (Auto) TNR 09/08/19 17:57 Lymph # TNR 09/08/19 17:57 [place] # TNR 09/08/19 17:57 Eos # TNR 09/08/19 17:57 Baso # TNR 09/08/19 17:57 Add Manual Diff Complete 09/09/19 05:43 Total Counted 100 09/09/19 05:43 Seg Neutrophils % Generalist 09/09/19 05:43 Seg Neuts % (Manual) 55.0 % (40.0-70.0) 09/09/19 05:43 Band Neutrophils % 38.0 % 09/09/19 05:43 Lymphocytes % (Manual) 3.0 % (13.4-35.0) L 09/09/19 05:43 Reactive Lymphs % (Man) 0 % 09/09/19 05:43 Monocytes % (Manual) 2.0 % (0.0-7.3) 09/09/19 05:43 Eosinophils % (Manual) 0 % (0.0-4.3) 09/09/19 05:43 Basophils % (Manual) 0 % (0.0-1.8) 09/09/19 05:43 Metamyelocytes % 2.0 % 09/09/19 05:43 Myelocytes % 0 % 09/09/19 05:43 Promyelocytes % 0 % 09/09/19 05:43 Blast Cells % 0 % 09/09/19 05:43 Nucleated RBC % 1.0 % (0.0-0.9) H 09/09/19 05:43 Seg Neutrophils # TNR 09/08/19 17:57 Seg Neutrophils # Man 15.2 K/mm3 (1.8-7.7) H 09/09/19 05:43 Band Neutrophils # 10.5 K/mm3 09/09/19 05:43 Lymphocytes # (Manual) 0.8 K/mm3 (1.2-5.4) L 09/09/19 05:43 Abs React Lymphs (Man) 0.0 K/mm3 09/09/19 05:43 Monocytes # (Manual) 0.6 K/mm3 (0.0-0.8) 09/09/19 05:43 Eosinophils # (Manual) 0.0 K/mm3 (0.0-0.4) 09/09/19 05:43 Basophils # (Manual) 0.0 K/mm3 (0.0-0.1) 09/09/19 05:43 Metamyelocytes # 0.6 K/mm3 09/09/19 05:43 Myelocytes # 0.0 K/mm3 09/09/19 05:43 Promyelocytes # 0.0 K/mm3 09/09/19 05:43 Blast Cells # 0.0 K/mm3 09/09/19 05:43 WBC Morphology Not Reportable 09/09/19 05:43 Hypersegmented Neuts Not Reportable 09/09/19 05:43 Hyposegmented Neuts Not Reportable 09/09/19 05:43 Hypogranular Neuts Not Reportable 09/09/19 05:43 Smudge Cells Not Reportable 09/09/19 05:43 Toxic Granulation Not Reportable 09/09/19 05:43 Toxic Vacuolation Not Reportable 09/09/19 05:43 Dohle Bodies Not Reportable 09/09/19 05:43 Pelger-Huet Anomaly Not Reportable 09/09/19 05:43 Juan Rods Not Reportable 09/09/19 05:43 Platelet Estimate Consistent w auto 09/09/19 05:43 Clumped Platelets Not Reportable 09/09/19 05:43 Plt Clumps, EDTA Not Reportable 09/09/19 05:43 Large Platelets Not Reportable 09/09/19 05:43 Giant Platelets Not Reportable 09/09/19 05:43 Platelet Satelliting Not Reportable 09/09/19 05:43 Plt Morphology Comment Not Reportable 09/09/19 05:43 RBC Morphology Not Reportable 09/09/19 05:43 Dimorphic RBCs Not Reportable 09/09/19 05:43 Polychromasia Not Reportable 09/09/19 05:43 Hypochromasia Not Reportable 09/09/19 05:43 Poikilocytosis Not Reportable 09/09/19 05:43 Anisocytosis 1+ 09/09/19 05:43 Microcytosis Not Reportable 09/09/19 05:43 Macrocytosis Not Reportable 09/09/19 05:43 Spherocytes Not Reportable 09/09/19 05:43 Pappenheimer Bodies Not Reportable 09/09/19 05:43 Sickle Cells Not Reportable 09/09/19 05:43 Target Cells Not Reportable 09/09/19 05:43 Tear Drop Cells Not Reportable 09/09/19 05:43 Ovalocytes Few 09/09/19 05:43 Helmet Cells Not Reportable 09/09/19 05:43 Matt-[place] Bodies Not Reportable 09/09/19 05:43 [place] Rings Not Reportable 09/09/19 05:43 Hemanth Cells Not Reportable 09/09/19 05:43 Bite Cells Not Reportable 09/09/19 05:43 Crenated Cell Not Reportable 09/09/19 05:43 Elliptocytes Not Reportable 09/09/19 05:43 Acanthocytes (Spur) Not Reportable 09/09/19 05:43 Rouleaux Not Reportable 09/09/19 05:43 Hemoglobin C Crystals Not Reportable 09/09/19 05:43 Schistocytes Not Reportable 09/09/19 05:43 Malaria parasites Not Reportable 09/09/19 05:43 Tariq Bodies Not Reportable 09/09/19 05:43 Hem Pathologist Commnt No 09/09/19 05:43 Sodium 135 mmol/L (137-145) L 09/12/19 04:00 Potassium 4.6 mmol/L (3.6-5.0) 09/12/19 04:00 Chloride 105.2 mmol/L (98-107) 09/12/19 04:00 Carbon Dioxide 20 mmol/L (22-30) L 09/12/19 04:00 Anion Gap 14 mmol/L 09/12/19 04:00 BUN 25 mg/dL (9-20) H 09/12/19 04:00 Creatinine 1.2 mg/dL (0.8-1.5) 09/12/19 04:00 Estimated GFR > 60 ml/min 09/12/19 04:00 BUN/Creatinine Ratio 21 % 09/12/19 04:00 Glucose 82 mg/dL (75-100) 09/12/19 04:00 POC Glucose 151 (70-105) H 09/12/19 07:35 Hemoglobin A1c 5.5 % (4-6) 09/09/19 00:21 Lactic Acid 0.90 mmol/L (0.7-2.0) 09/10/19 05:13 Calcium 8.0 mg/dL (8.4-10.2) L 09/12/19 04:00 Total Bilirubin 0.50 mg/dL (0.1-1.2) 09/08/19 17:57 AST 15 units/L (5-40) 09/08/19 17:57 ALT 7 units/L (7-56) 09/08/19 17:57 Alkaline Phosphatase 83 units/L (35-129) 09/08/19 17:57 Total Creatine Kinase 563 units/L (55-170) H 09/09/19 00:21 Troponin T < 0.010 ng/mL (0.00-0.029) 09/08/19 20:54 Total Protein 7.2 g/dL (6.3-8.2) 09/08/19 17:57 Albumin 3.6 g/dL (3.9-5) L 09/08/19 17:57 Albumin/Globulin Ratio 1.0 % 09/08/19 17:57 Urine Color Yellow (Yellow) 09/08/19 02:00 Urine Turbidity Cloudy (Clear) 09/08/19 02:00 Urine pH 5.0 (5.0-7.0) 09/08/19 02:00 Ur Specific [place] 1.014 (1.003-1.030) 09/08/19 02:00 Urine Protein 100 mg/dl mg/dL (Negative) 09/08/19 02:00 Urine Glucose (UA) Neg mg/dL (Negative) 09/08/19 02:00 Urine Ketones Neg mg/dL (Negative) 09/08/19 02:00 Urine Blood Mod (Negative) 09/08/19 02:00 Urine Nitrite Neg (Negative) 09/08/19 02:00 Urine Bilirubin Neg (Negative) 09/08/19 02:00 Urine Urobilinogen < 2.0 mg/dL (<2.0) 09/08/19 02:00 Ur Leukocyte Esterase Lg (Negative) 09/08/19 02:00 Urine WBC (Auto) > 182.0 /HPF (0.0-6.0) H 09/08/19 02:00 Urine RBC (Auto) 41.0 /HPF (0.0-6.0) 09/08/19 02:00 Urine Bacteria (Auto) 1+ /HPF (Negative) 09/08/19 02:00 Urine Mucus Few /HPF 09/08/19 02:00 Urine Creatinine 88.0 mg/dL (0.1-20.0) H 09/09/19 21:30 Urine Sodium 112 mmol/L 09/09/19 21:30 Urine Total Protein 28 mg/dL (5-11.8) H 09/09/19 21:30 Active Medications - Current Medications Current Medications: Generic Name Dose Route Start Last Admin Trade Name Freq PRN Reason Stop Dose Admin Acetaminophen 650 mg 09/08/19 23:08 Tylenol PO Q4H PRN Pain MILD(1-3)/Fever >100.5/RAMIREZ Benztropine Mesylate 1 mg 09/09/19 10:00 09/11/19 09:07 Cogentin PO 1 mg DAILY CALVIN Administration Dextrose 50 ml 09/08/19 23:28 D50w (25gm) Syringe IV PRN PRN Hypoglycemia Enoxaparin Sodium 40 mg 09/12/19 10:00 Lovenox SUB-Q QDAY@1000 CALVIN Finasteride 5 mg 09/09/19 10:00 09/11/19 09:07 Proscar PO 5 mg DAILY CALVIN Administration Sodium Chloride 1,000 mls @ 125 mls/hr 09/08/19 23:45 09/12/19 05:37 Nacl 0.9% 1000 Ml IV 125 mls/hr DIRECT CALVIN Administration Ceftriaxone Sodium 2 gm in 100 mls @ 200 mls/hr 09/11/19 10:00 09/11/19 09:05 Rocephin/Ns 2 Gm/100 Ml IV 200 mls/hr Q24HR CALVIN Administration Protocol Insulin Human Lispro 0 unit 09/09/19 07:30 09/11/19 22:15 Humalog SUB-Q Not Given ACHS CALVIN Protocol Ondansetron HCl 4 mg 09/08/19 23:08 Zofran IV Q8H PRN Nausea And Vomiting Sodium Chloride 10 ml 09/09/19 10:00 09/11/19 21:17 Sodium Chloride Flush Syringe 10 Ml IV 10 ml BID CALVIN Administration Sodium Chloride 10 ml 09/08/19 23:08 Sodium Chloride Flush Syringe 10 Ml IV PRN PRN LINE FLUSH Tamsulosin HCl 0.4 mg 09/09/19 10:00 09/11/19 09:07 Flomax PO 0.4 mg QDAY CALVIN Administration Trazodone HCl 100 mg 09/09/19 22:00 09/11/19 21:16 Desyrel PO 100 mg QHS CALVIN Administration Nutrition/Malnutrition Assess - Dietary Evaluation Nutrition/Malnutrition Findings: Nutrition Notes Start: 09/09/19 10:35 Freq: Status: Active Protocol: Document 09/11/19 14:40 LM (Rec: 09/11/19 14:57 LM [id number]) Nutrition Notes Initial or Follow up Assessment Current Diagnosis Acute Kidney Injury,Diabetes, Hypertension Other Pertinent Diagnosis Dementia, Schizophrenia Current Diet Consistent CHO Labs/Tests BUN 34 Cr 1.6 Pertinent Medications reviewed Height 5 ft 11 in Weight 82.7 kg [place] Body Weight (kg) 78.18 BMI 25.4 Weight change and time frame unable to get wt hx Weight Status Overweight Subjective/Other Information Unable to get information from pt. Per RN and chart pt ate 100% of lunch. 75-100% intakes documented in chart. No signs of malnutrition. Burn Absent Trauma Absent Nutrition Intervention Revisit per MD consult or patient Sign Off request:
[2019-09-12] MEDS: COGENTIN PO SCH (08:59)
[2019-09-12] MEDS: ROCEPHIN/NS 2 GM/100 ML 2 GM/100 ML BAG IV SCH (08:59)
[2019-09-12] MEDS: LOVENOX SUB-Q SCH (08:59)
[2019-09-12] MEDS: HumaLOG SUB-Q SCH ×4 (08:59→22:06)
[2019-09-12] MEDS: FLOMAX PO SCH (09:00)
[2019-09-12] MEDS: PROSCAR PO SCH (09:00)
[2019-09-12] MEDS: SODIUM CHLORIDE FLUSH SYRINGE 10 ML IV SCH ×2 (09:00→21:35)
--- NOTE | 2019-09-12 12:21 | Progress Note ---
Assessment and Plan - Patient Problems (1) WES (acute kidney injury) Current Visit: Yes Status: Acute Plan to address problem: Acute kidney injury probably prerenal azotemia secondary to hypotension. Kidney function is improving. Continue volume repletion. Follow-up electrolytes and renal function (2) Leukocytosis Current Visit: Yes Status: Acute Plan to address problem: Presumed sepsis. Cultures negative so far. Follow-up cultures. (3) Altered mental state Current Visit: No Status: Acute Qualifiers: Altered mental status type: unspecified Qualified Code(s): R41.82 - Altered mental status, unspecified Plan to address problem: Mental Status improved. Baseline (4) Hypotension Current Visit: No Status: Acute Qualifiers: Hypotension type: unspecified hypotension type Qualified Code(s): I95.9 - Hypotension, unspecified Plan to address problem: Improving with volume depletion. (5) Benign prostatic hyperplasia Current Visit: Yes Status: Acute Plan to address problem: Continue medications per primary attending (6) Bilateral renal cysts Current Visit: Yes Status: Acute Plan to address problem: Follow-up as an outpatient (7) Schizophrenia Current Visit: Yes Status: Acute Plan to address problem: Continue medications per primary attending Subjective Date of service: 09/12/19 Principal diagnosis: acute kidney injury Interval history: Pt awake alert, in no acute distress Objective - Vital Signs Vital signs: Vital Signs - 12hr 09/12/19 09/12/19 01:35 07:24 Temperature 98.3 F 97.6 F Pulse Rate 83 71 Respiratory 20 18 Rate Blood Pressure 155/85 142/78 O2 Sat by Pulse 97 98 Oximetry - General Appearance General appearance: well-developed, well-nourished, appears stated age EENT: ATNC, PERRL, mucous membranes moist Neck: no JVD Respiratory: Present: Clear to Ascultation Cardiology: regular, S1S2 Gastrointestinal: normoactive bowel sounds Integumentary: no rash, other (no edema ) Neurologic: no focal deficit, alert and oriented x3, strength 5/5, CN 3-12 intact Psychiatric: mood/affect appropriate, cooperative - Lab 09/12/19 04:00 09/12/19 04:00 Most recent lab results Calcium 8.0 mg/dL (8.4-10.2) L 09/12/19 04:00 Urine Creatinine 88.0 mg/dL (0.1-20.0) H 09/09/19 21:30 Urine Sodium 112 mmol/L 09/09/19 21:30 Urine Total Protein 28 mg/dL (5-11.8) H 09/09/19 21:30 Medications & Allergies - Medications Allergies/Adverse Reactions: Allergies No Known Allergies Allergy (Verified 11/10/17 15:28) Home Medications: Home Medications Medication Instructions Recorded Confirmed Last Taken Type Benztropine [Cogentin] 1 mg PO DAILY 11/10/17 09/08/19 Unknown History Finasteride [Proscar] 5 mg PO DAILY 11/10/17 09/08/19 Unknown History Losartan/Hydrochlorothiazide 1 each PO DAILY 11/10/17 09/08/19 Unknown History [Losartan-Hctz 100-25 mg Tab] Terazosin (Nf) [Hytrin (Nf)] 5 mg PO QHS 11/10/17 09/08/19 Unknown History Paliperidone Palmitate [Invega 234 mg IM QMONTH 09/08/19 09/08/19 08/31/19 History Sustenna] Simvastatin 20 mg PO QHS 09/08/19 09/08/19 Unknown History traZODone [Desyrel] 100 mg PO QHS 09/08/19 09/08/19 Unknown History Active Medications: Generic Name Dose Route Start Last Admin Trade Name Freq PRN Reason Stop Dose Admin Acetaminophen 650 mg 09/08/19 23:08 Tylenol PO Q4H PRN Pain MILD(1-3)/Fever >100.5/RAMIREZ Benztropine Mesylate 1 mg 09/09/19 10:00 09/12/19 08:59 Cogentin PO 1 mg DAILY CALVIN Administration Dextrose 50 ml 09/08/19 23:28 D50w (25gm) Syringe IV PRN PRN Hypoglycemia Enoxaparin Sodium 40 mg 09/12/19 10:00 09/12/19 08:59 Lovenox SUB-Q 40 mg QDAY@1000 CALVIN Administration Finasteride 5 mg 09/09/19 10:00 09/12/19 09:00 Proscar PO 5 mg DAILY CALVIN Administration Sodium Chloride 1,000 mls @ 125 mls/hr 09/08/19 23:45 09/12/19 05:37 Nacl 0.9% 1000 Ml IV 125 mls/hr DIRECT CALVIN Administration Ceftriaxone Sodium 2 gm in 100 mls @ 200 mls/hr 09/11/19 10:00 09/12/19 08:59 Rocephin/Ns 2 Gm/100 Ml IV 200 mls/hr Q24HR CALVIN Administration Protocol Insulin Human Lispro 0 unit 09/09/19 07:30 09/12/19 11:30 Humalog SUB-Q Not Given ACHS ACLVIN Protocol Ondansetron HCl 4 mg 09/08/19 23:08 Zofran IV Q8H PRN Nausea And Vomiting Sodium Chloride 10 ml 09/09/19 10:00 09/12/19 09:00 Sodium Chloride Flush Syringe 10 Ml IV 10 ml BID CALVIN Administration Sodium Chloride 10 ml 09/08/19 23:08 Sodium Chloride Flush Syringe 10 Ml IV PRN PRN LINE FLUSH Tamsulosin HCl 0.4 mg 09/09/19 10:00 09/12/19 09:00 Flomax PO 0.4 mg QDAY CALVIN Administration Trazodone HCl 100 mg 09/09/19 22:00 09/11/19 21:16 Desyrel PO 100 mg QHS CALVIN Administration
[2019-09-12] MEDS: TYLENOL PO PRN ×2 (13:40→21:43)
[2019-09-12] MEDS: DESYREL PO SCH (21:35)
[2019-09-12 21:57] LABS: Bilirubin,Urine NEG (Negative); Blood,Urine SM (Negative); Color,Urine Straw (Yellow); Protein,Urine <15 mg/dL mg/dL (Negative); Urobilinogen,Urine < 2.0 mg/dL (<2.0)
[2019-09-13 05:33] LABS: Hematocrit 30.4 % (35.5-45.6); Hemoglobin 10.2 gm/dl (11.8-15.2); Mean Corpuscular HGB Conc 34 % (32-34); Mean Corpuscular Volume 89 fl (84-94); Platelet Count 165 K/mm3 (140-440); Red Blood Count 3.42 M/mm3 (3.65-5.03); Red Cell Distribution Width 15.3 % (13.2-15.2)
[2019-09-13] MEDS: NACL 0.9% 1000 ML 1,000 ML IV SCH ×2 (05:47→18:00)
[2019-09-13 05:56] LABS: BUN/Creatinine Ratio 18; Blood Urea Nitrogen 22 mg/dL (9-20); Calcium 8.2 mg/dL (8.4-10.2); Hemolysis Index 2
[2019-09-13] MEDS: HumaLOG SUB-Q SCH ×4 (07:30→22:42)
--- NOTE | 2019-09-13 08:58 | Progress Note ---
Assessment and Plan - Patient Problems (1) WES (acute kidney injury) Current Visit: Yes Status: Acute Plan to address problem: Acute kidney injury probably prerenal azotemia secondary to hypotension. Kidney function is improving. Continue volume repletion. Follow-up electrolytes and renal function (2) Leukocytosis Current Visit: Yes Status: Acute Plan to address problem: Presumed sepsis. Cultures negative so far. Follow-up cultures. (3) Altered mental state Current Visit: No Status: Acute Qualifiers: Altered mental status type: unspecified Qualified Code(s): R41.82 - Altered mental status, unspecified Plan to address problem: Mental Status improved. Baseline (4) Hypotension Current Visit: No Status: Acute Qualifiers: Hypotension type: unspecified hypotension type Qualified Code(s): I95.9 - Hypotension, unspecified Plan to address problem: Improving with volume depletion. (5) Benign prostatic hyperplasia Current Visit: Yes Status: Acute Plan to address problem: Continue medications per primary attending (6) Bilateral renal cysts Current Visit: Yes Status: Acute Plan to address problem: Follow-up as an outpatient (7) Schizophrenia Current Visit: Yes Status: Acute Plan to address problem: Continue medications per primary attending Subjective Date of service: 09/13/19 Principal diagnosis: acute kidney injury Interval history: Pt awake alert, in no acute distress Objective - Vital Signs Vital signs: Vital Signs - 12hr 09/12/19 09/12/19 09/12/19 21:43 22:00 22:43 Temperature Pulse Rate Pulse Rate [ 72 Apical] Respiratory 18 18 Rate Blood Pressure O2 Sat by Pulse 97 Oximetry 09/13/19 09/13/19 03:07 07:19 Temperature 97.5 F L 98.3 F Pulse Rate 81 82 Pulse Rate [ Apical] Respiratory 18 18 Rate Blood Pressure 144/73 135/75 O2 Sat by Pulse 96 100 Oximetry - General Appearance General appearance: well-developed, well-nourished, appears stated age EENT: ATNC, PERRL, mucous membranes moist Neck: no JVD Respiratory: Present: Clear to Ascultation Cardiology: regular, S1S2 Gastrointestinal: normoactive bowel sounds Integumentary: no rash, other (no edema ) Neurologic: no focal deficit, alert and oriented x3, strength 5/5, CN 3-12 intact Psychiatric: mood/affect appropriate, cooperative - Lab 09/13/19 04:57 09/13/19 04:57 Most recent lab results Calcium 8.2 mg/dL (8.4-10.2) L 09/13/19 04:57 Urine Creatinine 88.0 mg/dL (0.1-20.0) H 09/09/19 21:30 Urine Sodium 112 mmol/L 09/09/19 21:30 Urine Total Protein 28 mg/dL (5-11.8) H 09/09/19 21:30 Medications & Allergies - Medications Allergies/Adverse Reactions: Allergies No Known Allergies Allergy (Verified 11/10/17 15:28) Home Medications: Home Medications Medication Instructions Recorded Confirmed Last Taken Type Benztropine [Cogentin] 1 mg PO DAILY 11/10/17 09/08/19 Unknown History Finasteride [Proscar] 5 mg PO DAILY 11/10/17 09/08/19 Unknown History Losartan/Hydrochlorothiazide 1 each PO DAILY 11/10/17 09/08/19 Unknown History [Losartan-Hctz 100-25 mg Tab] Terazosin (Nf) [Hytrin (Nf)] 5 mg PO QHS 11/10/17 09/08/19 Unknown History Paliperidone Palmitate [Invega 234 mg IM QMONTH 09/08/19 09/08/19 08/31/19 History Sustenna] Simvastatin 20 mg PO QHS 09/08/19 09/08/19 Unknown History traZODone [Desyrel] 100 mg PO QHS 09/08/19 09/08/19 Unknown History Active Medications: Generic Name Dose Route Start Last Admin Trade Name Freq PRN Reason Stop Dose Admin Acetaminophen 650 mg 09/08/19 23:08 09/12/19 21:43 Tylenol PO 650 mg Q4H PRN Administration Pain MILD(1-3)/Fever >100.5/RAMIREZ Benztropine Mesylate 1 mg 09/09/19 10:00 09/12/19 08:59 Cogentin PO 1 mg DAILY CALVIN Administration Dextrose 50 ml 09/08/19 23:28 D50w (25gm) Syringe IV PRN PRN Hypoglycemia Enoxaparin Sodium 40 mg 09/12/19 10:00 09/12/19 08:59 Lovenox SUB-Q 40 mg QDAY@1000 CALVIN Administration Finasteride 5 mg 09/09/19 10:00 09/12/19 09:00 Proscar PO 5 mg DAILY CALVIN Administration Sodium Chloride 1,000 mls @ 125 mls/hr 09/08/19 23:45 09/13/19 05:47 Nacl 0.9% 1000 Ml IV 125 mls/hr DIRECT CALVIN Administration Ceftriaxone Sodium 2 gm in 100 mls @ 200 mls/hr 09/11/19 10:00 09/12/19 08:59 Rocephin/Ns 2 Gm/100 Ml IV 200 mls/hr Q24HR CALVIN Administration Protocol Insulin Human Lispro 0 unit 09/09/19 07:30 09/12/19 22:06 Humalog SUB-Q Not Given ACHS CALVIN Protocol Ondansetron HCl 4 mg 09/08/19 23:08 Zofran IV Q8H PRN Nausea And Vomiting Sodium Chloride 10 ml 09/09/19 10:00 09/12/19 21:35 Sodium Chloride Flush Syringe 10 Ml IV 10 ml BID CALVIN Administration Sodium Chloride 10 ml 09/08/19 23:08 Sodium Chloride Flush Syringe 10 Ml IV PRN PRN LINE FLUSH Tamsulosin HCl 0.4 mg 09/09/19 10:00 09/12/19 09:00 Flomax PO 0.4 mg QDAY CALVIN Administration Trazodone HCl 100 mg 09/09/19 22:00 09/12/19 21:35 Desyrel PO 100 mg QHS CALVIN Administration
[2019-09-13] MEDS: LOVENOX SUB-Q SCH (09:41)
[2019-09-13] MEDS: ROCEPHIN/NS 2 GM/100 ML 2 GM/100 ML BAG IV SCH (09:41)
[2019-09-13] MEDS: COGENTIN PO SCH (09:41)
[2019-09-13] MEDS: SODIUM CHLORIDE FLUSH SYRINGE 10 ML IV SCH ×2 (09:41→21:59)
[2019-09-13] MEDS: FLOMAX PO SCH (09:41)
[2019-09-13] MEDS: PROSCAR PO SCH (09:41)
--- NOTE | 2019-09-13 10:58 | Progress Note ---
Assessment and Plan Assessment and plan: 74-year-old -[place] male history of BPH, dementia, schizophrenia hypertension, and diabetes, who presents [facility] ED via EMS after being found down at home covered in feces and bodily fluids. WES due to vasomotor nephropathy -CT Abdomen/Pelvis shows Urinary bladder is mostly collapsed but grossly unremarkable. No free fluid or inflammation. Multiple bilateral renal cysts, several which are quite large, measuring up to 7 cm. -Cr on admission 2.7, now 1.6 -Hydrate with IVF -Avoid nephrotoxin agents -Renal dose all meds -Nephrology following Sepsis due to UTI -CXR unremarkable -Leukocytosis -Tachycardic with heart rate -Afebrile -Blood cultures No growth to date Consulted ID. Discussed with Dr. Urena UTI Cont Rocephin Leukocytosis Hypotension -BP now stable -Responsive to fluid resuscitation -On IVF -Continue to monitor BP -Hold all antihypertensive meds Failure to Thrive -Pt currently lives at home with sister, who is unable to continue to care for him -Present to ED via EMS after being found down covered in feces and body fluids -PT/OT eval pending -Case management consulted Schizophrenia -Receives monthly Invega injections BPH -Continue finasteride -Start Flomax DM2 -HgbA1c 5.5 -SSI coverage prn Hx Dementia DVT PPX -on Lovenox Patient medically stable for discharge. Awaiting Level 2 eval for placement History Interval history: Feels better No new complaints Hospitalist Physical - Physical exam Narrative exam: Gen: Not in acute distress, sitting up in bed HEENT: Normocephalic, atraumatic Neck: supple, no JVD Heart: S1 and S2 reg, no murmurs, rubs or gallop Lungs: Clear to auscultation, no rhonchi, no wheeze Abd: soft, non tender , no rebound tenderness, non distended, normal BS, Ext: No edema, no clubbing, no cyanosis Neuro: Awake, alert, moves all ext, no focal neurological signs - Constitutional Vitals: Temp Pulse Resp BP Pulse Ox 98.3 F 82 18 135/75 100 09/13/19 07:19 09/13/19 07:19 09/13/19 07:19 09/13/19 07:19 09/13/19 07:19 Results - Labs CBC & Chem 7: 09/13/19 04:57 09/13/19 04:57 Labs: Laboratory Last Values WBC 8.3 K/mm3 (4.5-11.0) 09/13/19 04:57 RBC 3.42 M/mm3 (3.65-5.03) L 09/13/19 04:57 Hgb 10.2 gm/dl (11.8-15.2) L 09/13/19 04:57 Hct 30.4 % (35.5-45.6) L 09/13/19 04:57 MCV 89 fl (84-94) 09/13/19 04:57 MCH 30 pg (28-32) 09/13/19 04:57 MCHC 34 % (32-34) 09/13/19 04:57 RDW 15.3 % (13.2-15.2) H 09/13/19 04:57 Plt Count 165 K/mm3 (140-440) 09/13/19 04:57 Lymph % (Auto) TNR 09/08/19 17:57 [place] % (Auto) TNR 09/08/19 17:57 Eos % (Auto) TNR 09/08/19 17:57 Baso % (Auto) TNR 09/08/19 17:57 Lymph # TNR 09/08/19 17:57 [place] # TNR 09/08/19 17:57 Eos # TNR 09/08/19 17:57 Baso # TNR 09/08/19 17:57 Add Manual Diff Complete 09/09/19 05:43 Total Counted 100 09/09/19 05:43 Seg Neutrophils % Band Cutter 09/09/19 05:43 Seg Neuts % (Manual) 55.0 % (40.0-70.0) 09/09/19 05:43 Band Neutrophils % 38.0 % 09/09/19 05:43 Lymphocytes % (Manual) 3.0 % (13.4-35.0) L 09/09/19 05:43 Reactive Lymphs % (Man) 0 % 09/09/19 05:43 Monocytes % (Manual) 2.0 % (0.0-7.3) 09/09/19 05:43 Eosinophils % (Manual) 0 % (0.0-4.3) 09/09/19 05:43 Basophils % (Manual) 0 % (0.0-1.8) 09/09/19 05:43 Metamyelocytes % 2.0 % 09/09/19 05:43 Myelocytes % 0 % 09/09/19 05:43 Promyelocytes % 0 % 09/09/19 05:43 Blast Cells % 0 % 09/09/19 05:43 Nucleated RBC % 1.0 % (0.0-0.9) H 09/09/19 05:43 Seg Neutrophils # TNR 09/08/19 17:57 Seg Neutrophils # Man 15.2 K/mm3 (1.8-7.7) H 09/09/19 05:43 Band Neutrophils # 10.5 K/mm3 09/09/19 05:43 Lymphocytes # (Manual) 0.8 K/mm3 (1.2-5.4) L 09/09/19 05:43 Abs React Lymphs (Man) 0.0 K/mm3 09/09/19 05:43 Monocytes # (Manual) 0.6 K/mm3 (0.0-0.8) 09/09/19 05:43 Eosinophils # (Manual) 0.0 K/mm3 (0.0-0.4) 09/09/19 05:43 Basophils # (Manual) 0.0 K/mm3 (0.0-0.1) 09/09/19 05:43 Metamyelocytes # 0.6 K/mm3 09/09/19 05:43 Myelocytes # 0.0 K/mm3 09/09/19 05:43 Promyelocytes # 0.0 K/mm3 09/09/19 05:43 Blast Cells # 0.0 K/mm3 09/09/19 05:43 WBC Morphology Not Reportable 09/09/19 05:43 Hypersegmented Neuts Not Reportable 09/09/19 05:43 Hyposegmented Neuts Not Reportable 09/09/19 05:43 Hypogranular Neuts Not Reportable 09/09/19 05:43 Smudge Cells Not Reportable 09/09/19 05:43 Toxic Granulation Not Reportable 09/09/19 05:43 Toxic Vacuolation Not Reportable 09/09/19 05:43 Dohle Bodies Not Reportable 09/09/19 05:43 Pelger-Huet Anomaly Not Reportable 09/09/19 05:43 Juan Rods Not Reportable 09/09/19 05:43 Platelet Estimate Consistent w auto 09/09/19 05:43 Clumped Platelets Not Reportable 09/09/19 05:43 Plt Clumps, EDTA Not Reportable 09/09/19 05:43 Large Platelets Not Reportable 09/09/19 05:43 Giant Platelets Not Reportable 09/09/19 05:43 Platelet Satelliting Not Reportable 09/09/19 05:43 Plt Morphology Comment Not Reportable 09/09/19 05:43 RBC Morphology Not Reportable 09/09/19 05:43 Dimorphic RBCs Not Reportable 09/09/19 05:43 Polychromasia Not Reportable 09/09/19 05:43 Hypochromasia Not Reportable 09/09/19 05:43 Poikilocytosis Not Reportable 09/09/19 05:43 Anisocytosis 1+ 09/09/19 05:43 Microcytosis Not Reportable 09/09/19 05:43 Macrocytosis Not Reportable 09/09/19 05:43 Spherocytes Not Reportable 09/09/19 05:43 Pappenheimer Bodies Not Reportable 09/09/19 05:43 Sickle Cells Not Reportable 09/09/19 05:43 Target Cells Not Reportable 09/09/19 05:43 Tear Drop Cells Not Reportable 09/09/19 05:43 Ovalocytes Few 09/09/19 05:43 Helmet Cells Not Reportable 09/09/19 05:43 [place] Bodies Not Reportable 09/09/19 05:43 [place] Rings Not Reportable 09/09/19 05:43 Hemanth Cells Not Reportable 09/09/19 05:43 Bite Cells Not Reportable 09/09/19 05:43 Crenated Cell Not Reportable 09/09/19 05:43 Elliptocytes Not Reportable 09/09/19 05:43 Acanthocytes (Spur) Not Reportable 09/09/19 05:43 Rouleaux Not Reportable 09/09/19 05:43 Hemoglobin C Crystals Not Reportable 09/09/19 05:43 Schistocytes Not Reportable 09/09/19 05:43 Malaria parasites Not Reportable 09/09/19 05:43 Tariq Bodies Not Reportable 09/09/19 05:43 Hem Pathologist Commnt No 09/09/19 05:43 Sodium 139 mmol/L (137-145) 09/13/19 04:57 Potassium 4.5 mmol/L (3.6-5.0) 09/13/19 04:57 Chloride 105.5 mmol/L (98-107) 09/13/19 04:57 Carbon Dioxide 19 mmol/L (22-30) L 09/13/19 04:57 Anion Gap 19 mmol/L 09/13/19 04:57 BUN 22 mg/dL (9-20) H 09/13/19 04:57 Creatinine 1.2 mg/dL (0.8-1.5) 09/13/19 04:57 Estimated GFR > 60 ml/min 09/13/19 04:57 BUN/Creatinine Ratio 18 % 09/13/19 04:57 Glucose 88 mg/dL (75-100) 09/13/19 04:57 POC Glucose 91 (70-105) 09/13/19 08:11 Hemoglobin A1c 5.5 % (4-6) 09/09/19 00:21 Lactic Acid 0.90 mmol/L (0.7-2.0) 09/10/19 05:13 Calcium 8.2 mg/dL (8.4-10.2) L 09/13/19 04:57 Total Bilirubin 0.50 mg/dL (0.1-1.2) 09/08/19 17:57 AST 15 units/L (5-40) 09/08/19 17:57 ALT 7 units/L (7-56) 09/08/19 17:57 Alkaline Phosphatase 83 units/L (35-129) 09/08/19 17:57 Total Creatine Kinase 563 units/L (55-170) H 09/09/19 00:21 Troponin T < 0.010 ng/mL (0.00-0.029) 09/08/19 20:54 Total Protein 7.2 g/dL (6.3-8.2) 09/08/19 17:57 Albumin 3.6 g/dL (3.9-5) L 09/08/19 17:57 Albumin/Globulin Ratio 1.0 % 09/08/19 17:57 Urine Color Straw (Yellow) 09/09/19 21:00 Urine Turbidity Clear (Clear) 09/09/19 21:00 Urine pH 5.0 (5.0-7.0) 09/09/19 21:00 Ur Specific [place] 1.010 (1.003-1.030) 09/09/19 21:00 Urine Protein <15 mg/dl mg/dL (Negative) 09/09/19 21:00 Urine Glucose (UA) Neg mg/dL (Negative) 09/09/19 21:00 Urine Ketones Neg mg/dL (Negative) 09/09/19 21:00 Urine Blood Sm (Negative) 09/09/19 21:00 Urine Nitrite Neg (Negative) 09/09/19 21:00 Urine Bilirubin Neg (Negative) 09/09/19 21:00 Urine Urobilinogen < 2.0 mg/dL (<2.0) 09/09/19 21:00 Ur Leukocyte Esterase Tr (Negative) 09/09/19 21:00 Urine WBC (Auto) 5.0 /HPF (0.0-6.0) 09/09/19 21:00 Urine RBC (Auto) 2.0 /HPF (0.0-6.0) 09/09/19 21:00 U Epithel Cells (Auto) < 1.0 /HPF (0-13.0) 09/09/19 21:00 Urine Bacteria (Auto) 1+ /HPF (Negative) 09/08/19 02:00 Urine Mucus Few /HPF 09/08/19 02:00 Urine Creatinine 88.0 mg/dL (0.1-20.0) H 09/09/19 21:30 Urine Sodium 112 mmol/L 09/09/19 21:30 Urine Total Protein 28 mg/dL (5-11.8) H 09/09/19 21:30 Active Medications - Current Medications Current Medications: Generic Name Dose Route Start Last Admin Trade Name Freq PRN Reason Stop Dose Admin Acetaminophen 650 mg 09/08/19 23:08 09/12/19 21:43 Tylenol PO 650 mg Q4H PRN Administration Pain MILD(1-3)/Fever >100.5/RAMIREZ Benztropine Mesylate 1 mg 09/09/19 10:00 09/13/19 09:41 Cogentin PO 1 mg DAILY CALVIN Administration Dextrose 50 ml 09/08/19 23:28 D50w (25gm) Syringe IV PRN PRN Hypoglycemia Enoxaparin Sodium 40 mg 09/12/19 10:00 09/13/19 09:41 Lovenox SUB-Q 40 mg QDAY@1000 CALVIN Administration Finasteride 5 mg 09/09/19 10:00 09/13/19 09:41 Proscar PO 5 mg DAILY CALVIN Administration Sodium Chloride 1,000 mls @ 125 mls/hr 09/08/19 23:45 09/13/19 05:47 Nacl 0.9% 1000 Ml IV 125 mls/hr DIRECT CALVIN Administration Ceftriaxone Sodium 2 gm in 100 mls @ 200 mls/hr 09/11/19 10:00 09/13/19 09:41 Rocephin/Ns 2 Gm/100 Ml IV 200 mls/hr Q24HR CALVIN Administration Protocol Insulin Human Lispro 0 unit 09/09/19 07:30 09/13/19 07:30 Humalog SUB-Q Not Given ACHS CALVIN Protocol Ondansetron HCl 4 mg 09/08/19 23:08 Zofran IV Q8H PRN Nausea And Vomiting Sodium Chloride 10 ml 09/09/19 10:00 09/13/19 09:41 Sodium Chloride Flush Syringe 10 Ml IV 10 ml BID CALVIN Administration Sodium Chloride 10 ml 09/08/19 23:08 Sodium Chloride Flush Syringe 10 Ml IV PRN PRN LINE FLUSH Tamsulosin HCl 0.4 mg 09/09/19 10:00 09/13/19 09:41 Flomax PO 0.4 mg QDAY CALVIN Administration Trazodone HCl 100 mg 09/09/19 22:00 09/12/19 21:35 Desyrel PO 100 mg QHS CALVIN Administration Nutrition/Malnutrition Assess - Dietary Evaluation Nutrition/Malnutrition Findings: Nutrition Notes Start: 09/09/19 10: 35 Freq: Status: Active Protocol: Document 09/11/19 14:40 LM (Rec: 09/11/19 14:57 LM [id number]) Nutrition Notes Initial or Follow up Assessment Current Diagnosis Acute Kidney Injury,Diabetes, Hypertension Other Pertinent Diagnosis Dementia, Schizophrenia Current Diet Consistent CHO Labs/Tests BUN 34 Cr 1.6 Pertinent Medications reviewed Height 5 ft 11 in Weight 82.7 kg [place] Body Weight (kg) 78.18 BMI 25.4 Weight change and time frame unable to get wt hx Weight Status Overweight Subjective/Other Information Unable to get information from pt. Per RN and chart pt ate 100% of lunch. 75-100% intakes documented in chart. No signs of malnutrition. Burn Absent Trauma Absent Nutrition Intervention Revisit per MD consult or patient Sign Off request:
--- NOTE | 2019-09-13 12:18 | Progress Note ---
Assessment and Plan Cultures: 09/08 BCx - NGTD UCx - negative A/P: 74 yo M PMHx BPH, dementia, schizophrenia, DM2 admitted after being found down; found to have UTI 1. Acute sepsis - present on admission with tachycardia and leukocytosis. Secondary to UTI. improved. 2. UTI - Cultures negative. When discharging would send home on PO cefdinir 300mg q12h to complete 7 days therapy. 3. Dementia 4. WES - improved. 5. DM2 - tight glycemic control for optimal immune function. Recs: - continue ceftriaxone 2g q24h while inpatient, upon discharge switch to PO cefdinir 300mg q12h until stop date: 09/15/19 - remains clear for d/c from ID standpoint Marilin Covarrubias MD, FACP [facility] ([facility] C: [phone] O: [phone] F: [phone] Subjective Date of service: 09/13/19 Principal diagnosis: acute kidney injury Interval history: No fever. Lying in bed, talking on the phone. Denies any urinary burning. No hematuria. No rash. Objective - Exam Narrative Exam: General: Alert, cooperative. No acute distress Head, Ears, Nose: Normocephalic, atraumatic. External ears, nose normal Eyes: Conjunctivae/corneas clear. No icterus. No ptosis. Neck: Supple, no meningeal signs Cardiovascular: S1, S2 normal. Respiratory: Good air entry, clear to auscultation bilaterally GI: Soft, non-tender; bowel sounds normal. No peritoneal signs Musculoskeletal: No pedal edema, no cyanosis. Stasis dermatitis + b/l LE Skin: No rash Hem/Lymphatic: No palpable cervical or supraclavicular nodes. No lymphangitis Psych: Mood ok. no agitation Neurological: Awake. Alert. - Constitutional Vitals: Vital Signs Temp Pulse Resp BP Pulse Ox 98.3 F 82 18 135/75 100 09/13/19 07:19 09/13/19 07:19 09/13/19 07:19 09/13/19 07:19 09/13/19 07:19 Temperature -Last 24 Hours Temperature 98.3 F Temperature 97.5 F Temperature 97.8 F Temperature 97.9 F - Labs CBC & Chem 7: 09/13/19 04:57 09/13/19 04:57 Labs: Abnormal lab results 09/12/19 09/13/19 09/13/19 Range/Units 16:33 04:57 04:57 RBC 3.42 L (3.65-5.03) M/mm3 Hgb 10.2 L (11.8-15.2) gm/dl Hct 30.4 L (35.5-45.6) % RDW 15.3 H (13.2-15.2) % Carbon Dioxide 19 L (22-30) mmol/L BUN 22 H (9-20) mg/dL POC Glucose 128 H (70-105) Calcium 8.2 L (8.4-10.2) mg/dL 09/13/19 Range/Units 11:31 RBC (3.65-5.03) M/mm3 Hgb (11.8-15.2) gm/dl Hct (35.5-45.6) % RDW (13.2-15.2) % Carbon Dioxide (22-30) mmol/L BUN (9-20) mg/dL POC Glucose 147 H (70-105) Calcium (8.4-10.2) mg/dL
[2019-09-13] MEDS: TYLENOL PO PRN (19:36)
[2019-09-13] MEDS: DESYREL PO SCH (21:59)
[2019-09-14] MEDS: NACL 0.9% 1000 ML 1,000 ML IV SCH (04:43)
[2019-09-14 06:33] LABS: Hematocrit 29.6 % (35.5-45.6); Hemoglobin 9.8 gm/dl (11.8-15.2); Mean Corpuscular HGB Conc 33 % (32-34); Mean Corpuscular Volume 88 fl (84-94); Platelet Count 176 K/mm3 (140-440); Red Blood Count 3.35 M/mm3 (3.65-5.03); Red Cell Distribution Width 15.3 % (13.2-15.2)
[2019-09-14 06:52] LABS: BUN/Creatinine Ratio 16; Blood Urea Nitrogen 19 mg/dL (9-20); Calcium 8.6 mg/dL (8.4-10.2); Hemolysis Index 22
[2019-09-14] MEDS: HumaLOG SUB-Q SCH ×2 (08:30→11:59)
[2019-09-14] MEDS: COGENTIN PO SCH (10:59)
[2019-09-14] MEDS: PROSCAR PO SCH (10:59)
[2019-09-14] MEDS: FLOMAX PO SCH (11:00)
[2019-09-14] MEDS: LOVENOX SUB-Q SCH (11:00)
[2019-09-14] MEDS: ROCEPHIN/NS 2 GM/100 ML 2 GM/100 ML BAG IV SCH (11:00)
[2019-09-14] MEDS: SODIUM CHLORIDE FLUSH SYRINGE 10 ML IV SCH (11:58)
--- NOTE | 2019-09-14 13:22 | Progress Note ---
Assessment and Plan - Patient Problems (1) WES (acute kidney injury) Current Visit: Yes Status: Acute Plan to address problem: Continue with current management. Overall reanl function showing improvement. (2) Bilateral renal cysts Current Visit: Yes Status: Acute Plan to address problem: Outpatient follow up. (3) Leukocytosis Current Visit: Yes Status: Acute Plan to address problem: Cultures negative. Afebrile. Antibiotics per primary attending. (4) Altered mental state Current Visit: No Status: Acute Qualifiers: Altered mental status type: unspecified Qualified Code(s): R41.82 - Altered mental status, unspecified Plan to address problem: Mental status is back to his baseline. (5) Schizophrenia Current Visit: Yes Status: Acute Plan to address problem: Currently back at baseline mental status, Further management per primary team/psychaitry. (6) Benign prostatic hyperplasia Current Visit: Yes Status: Acute Plan to address problem: Management per primary attending. Subjective Date of service: 09/14/19 Principal diagnosis: acute kidney injury Interval history: No acute issues overnight. Labs noted and renal function showing improvement. Improved mental status. Objective - Vital Signs Vital signs: Vital Signs - 12hr 09/14/19 09/14/19 02:03 08:04 Temperature 97.3 F L 97.6 F Pulse Rate 94 H 72 Respiratory 16 18 Rate Blood Pressure 137/93 148/82 O2 Sat by Pulse 95 97 Oximetry - General Appearance General appearance: well-developed, appears stated age EENT: ATNC, PERRL Neck: no JVD, no thyromegaly Respiratory: Present: Clear to Ascultation Cardiology: regular, S1S2 Gastrointestinal: normal, normoactive bowel sounds Integumentary: no rash, warm and dry Neurologic: no focal deficit Musculoskeletal: deferred Psychiatric: mood/affect appropriate - Lab 09/14/19 06:01 09/14/19 06:01 Most recent lab results Calcium 8.6 mg/dL (8.4-10.2) 09/14/19 06:01 Urine Creatinine 88.0 mg/dL (0.1-20.0) H 09/09/19 21:30 Urine Sodium 112 mmol/L 09/09/19 21:30 Urine Total Protein 28 mg/dL (5-11.8) H 09/09/19 21:30 - Allied health notes Allied health notes reviewed: nursing Medications & Allergies - Medications Allergies/Adverse Reactions: Allergies No Known Allergies Allergy (Verified 11/10/17 15:28) Home Medications: Home Medications Medication Instructions Recorded Confirmed Last Taken Type Benztropine [Cogentin] 1 mg PO DAILY 11/10/17 09/08/19 Unknown History Finasteride [Proscar] 5 mg PO DAILY 11/10/17 09/08/19 Unknown History Losartan/Hydrochlorothiazide 1 each PO DAILY 11/10/17 09/08/19 Unknown History [Losartan-Hctz 100-25 mg Tab] Terazosin (Nf) [Hytrin (Nf)] 5 mg PO QHS 11/10/17 09/08/19 Unknown History Paliperidone Palmitate [Invega 234 mg IM QMONTH 09/08/19 09/08/19 08/31/19 History Sustenna] Simvastatin 20 mg PO QHS 09/08/19 09/08/19 Unknown History traZODone [Desyrel] 100 mg PO QHS 09/08/19 09/08/19 Unknown History Active Medications: Generic Name Dose Route Start Last Admin Trade Name Freq PRN Reason Stop Dose Admin Acetaminophen 650 mg 09/08/19 23:08 09/13/19 19:36 Tylenol PO 650 mg Q4H PRN Administration Pain MILD(1-3)/Fever >100.5/RAMIREZ Benztropine Mesylate 1 mg 09/09/19 10:00 09/14/19 10:59 Cogentin PO 1 mg DAILY CALVIN Administration Dextrose 50 ml 09/08/19 23:28 D50w (25gm) Syringe IV PRN PRN Hypoglycemia Enoxaparin Sodium 40 mg 09/12/19 10:00 09/14/19 11:00 Lovenox SUB-Q 40 mg QDAY@1000 CALVIN Administration Finasteride 5 mg 09/09/19 10:00 09/14/19 10:59 Proscar PO 5 mg DAILY CALVIN Administration Sodium Chloride 1,000 mls @ 125 mls/hr 09/08/19 23:45 09/14/19 04:43 Nacl 0.9% 1000 Ml IV 125 mls/hr DIRECT CALVIN Administration Ceftriaxone Sodium 2 gm in 100 mls @ 200 mls/hr 09/11/19 10:00 09/14/19 11:00 Rocephin/Ns 2 Gm/100 Ml IV 200 mls/hr Q24HR CALVIN Administration Protocol Insulin Human Lispro 0 unit 09/09/19 07:30 09/14/19 11:59 Humalog SUB-Q Not Given ACHS CALVIN Protocol Ondansetron HCl 4 mg 09/08/19 23:08 Zofran IV Q8H PRN Nausea And Vomiting Sodium Chloride 10 ml 09/09/19 10:00 09/14/19 11:58 Sodium Chloride Flush Syringe 10 Ml IV 10 ml BID CALVIN Administration Sodium Chloride 10 ml 09/08/19 23:08 Sodium Chloride Flush Syringe 10 Ml IV PRN PRN LINE FLUSH Tamsulosin HCl 0.4 mg 09/09/19 10:00 09/14/19 11:00 Flomax PO 0.4 mg QDAY CALVIN Administration Trazodone HCl 100 mg 09/09/19 22:00 09/13/19 21:59 Desyrel PO 100 mg QHS CALVIN Administration
--- NOTE | 2019-09-14 13:38 | Discharge Summary ---
Providers - Providers Date of Admission: 09/08/19 23:08 Date of discharge: 09/14/19 Attending physician: CONNOR RUIZ 09/08/19 23:06 Consult to Case Management [CONS] Routine Services Needed at Discharge: Other Notified:: [place] Comment:: needs snf placement, sister can no longer care for him 09/08/19 23:07 Consult to Dietitian/Nutrition [CONS] Routine Physician Instructions: Reason For Exam: Reason for Consult: Malnutrition Consult to Physician [CONS] Routine Comment: Consulting Provider: SHAAN MANCILLA Physician Instructions: Reason For Exam: jocelin 09/08/19 23:08 Physical Therapy Evaluation and Treat [CONS] Routine Comment: Reason For Exam: ataxia 09/09/19 15:27 Consult to Physician [CONS] Routine Comment: Consulting Provider: SAI MULTANI Physician Instructions: Reason For Exam: Sepsis due to UTI Primary care physician: [facility] ADMIN Hospitalization Condition: Fair Disposition: DC-01 TO HOME OR SELFCARE Exam - Constitutional Vitals: Temp Pulse Resp BP Pulse Ox 97.6 F 72 18 148/82 97 09/14/19 08:04 09/14/19 08:04 09/14/19 08:04 09/14/19 08:04 09/14/19 08:04 Plan Activity: no restrictions Diet: low fat, low cholesterol, low salt, diabetic Plan of Treatment: 1.Follow up with Physician at facility in 2-3 days Follow up with: PRIMARY CARE, [Primary Care Provider] - 7 Days Prescriptions: Cefdinir 300 mg PO BID #3 capsule amLODIPine [Norvasc] 5 mg PO DAILY #30 tab
[2019-09-14 13:39] VITALS: BP 152/84
== END 2019-09-14 14:48 | DRG 871 ==
LOC: ED 16:52 → 2B-ACE 23:08
PROVIDERS: ADMIT Internal Medicine; ATTEND Internal Medicine
DX: A41.9 Sepsis, unspecified organism (principal); N17.0 Acute kidney failure with tubular necrosis; R53.2 Functional quadriplegia; N39.0 Urinary tract infection, site not specified; I95.9 Hypotension, unspecified; R62.7 Adult failure to thrive; F20.9 Schizophrenia, unspecified; I10 Essential (primary) hypertension; N40.0 Benign prostatic hyperplasia without lower urinary tract symptoms; N28.1 Cyst of kidney, acquired; E86.0 Dehydration; F03.90 Unspecified dementia, unspecified severity, without behavioral disturbance, psychotic disturbance, mood disturbance, and anxiety; E11.9 Type 2 diabetes mellitus without complications; Z79.899 Other long term (current) drug therapy
CPT/HCPCS: 36415; 71045; 74176; 80048; 80053; 81001; 82140; 82550; 82570; 82962; 83036; 84156; 84300; 84484; 85007; 85025; 85027; 87040; 87086; 93005; 93010; 96374; G0378; J0696; J1650; J1815; J7030